=== PATIENT | male | born 1970 | race Caucasian/White ===

== ENCOUNTER 2016-10-04 15:43 | Inpatient (IN) | payer MEDICAID, OTHER ==
[~2016-10-04] VITALS: Ht 165.1 cm; Wt 70.8 kg
[~2016-10-04 15:43] MED LIST: ALBU17IN2 INH; BUPR1SUB5 SL; CLEO300C2 PO; CYMB1CAP5 PO; CYMB60CA3 PO; DEPA250T2 PO; DULO30CA PO; GABA-283 PO; INVE234I IM; INVE3TAB PO; LEVA750T PO; LEVO25TA5 PO; LEVO750T33 PO; NICO21PAT TD; OLAN2.5T PO; OMEP20CA3 PO; OMEP40CA2 PO; PANT40TA2 PO; PRIL20CA PO; QUET1TAB8 PO; QUET1TAB9 PO; RISP2TAB12 OR; SERO1TAB PO; SERO200T PO; SUBO8MIS SL; TRAZ50TA OR; TYLE325T5 PO; ZYPR2.5T2 PO
[2016-10-04 16:34] LABS: MEAN CORPUSCULAR HEMOGLOBIN 29.6 pg (27.0-33.0); MEAN CORPUSCULAR HGB CONC 33.9 g/dl (32.0-36.5); MEAN CORPUSCULAR VOLUME 87.2 fl (80.0-96.0); RED CELL DISTRIBUTION WIDTH 13.4 % (11.5-14.5)
[2016-10-04 16:59] LABS: BLOOD UREA NITROGEN 13 MG/DL (7-18); CREATININE FOR GFR 0.99 MG/DL (0.70-1.30); GLUCOSE, FASTING 92 MG/DL (70-105)
[2016-10-04 17:00] LABS: ALBUMIN 3.6 GM/DL (3.2-5.2); ALBUMIN/GLOBULIN RATIO 1.13 (1.00-1.93); ALKALINE PHOSPHATASE 121 U/L (45-117); ALT/SGPT 30 U/L (12-78); ANION GAP 6 MEQ/L (8-16); AST/SGOT 14 U/L (15-37); BILIRUBIN,DIRECT 0.1 MG/DL (0.0-0.2); BILIRUBIN,TOTAL 0.3 MG/DL (0.2-1.0); CALCIUM LEVEL 8.9 MG/DL (8.5-10.1); CARBON DIOXIDE LEVEL 29 MEQ/L (21-32); CHLORIDE LEVEL 108 MEQ/L (98-107); GLOMERULAR FILTRATION RATE > 60.0 (>60); POTASSIUM SERUM 4.2 MEQ/L (3.5-5.1); SODIUM LEVEL 143 MEQ/L (136-145); TOTAL PROTEIN 6.8 GM/DL (6.4-8.2)
[2016-10-04 19:51] LABS: AMPHETAMINES LEVEL URINE POSITIVE (NEGATIVE); BENZODIAZEPINES URINE NEGATIVE (NEGATIVE); COCAINE METABOLITE URINE POSITIVE (NEGATIVE); METHADONE URINE NEGATIVE (NEGATIVE); OPIATES URINE POSITIVE (NEGATIVE); TRICYCLIC ANTIDEPRESS URINE NEGATIVE (NEGATIVE)
[2016-10-04 19:52] LABS: CONTROL LINE INT CTR LINE PRESENT
[2016-10-04] MEDS ORDERED: BUPRENORPHINE/NALOXONE 8-2MG SUBLINGUAL TABLET(SUBOXONE) PO ONE (20:45)
--- NOTE | 2016-10-05 08:56 | EDDOCDS ---
Physician Documentation [facility] Name: Vitaliy Alex Age: 46 yrs Sex: Male : 1970 Arrival Date: 10/04/2016 Time: 15:43 Bed OBSERVATION Private MD: NO PRIMARY PHYSICIAN, . Disposition: 10/05/16 07:50 Hospitalization ordered by Vero Ruth for Inpatient Admission. Preliminary diagnosis is Schizoaffective disorders. - Bed requested for Admit. - Status is Inpatient Admission. mk4 - Condition is Stable. - Problem is an acute exacerbation. - Symptoms are unchanged. Historical: - Allergies: no known allergies; - Home Meds: 1. Suboxone SL 1 tab twice daily 2. invega IM monthly - PMHx: opiod addiction; - PSHx: Appendectomy; Tonsillectomy; right leg surgery; right hand surgery; right knee surgery; - Social history: Smoking status: Patient uses tobacco products, heavy tobacco smoker. No barriers to communication noted, The patient speaks fluent [place]. - Family history: Not pertinent. - : The pt / caregiver states he / she is not on anticoagulants. Home medication list is obtained from the patient. - Exposure Risk Screening:: None identified. Vital Signs: 10/04 16:00 BP 145 / 92; Pulse 95; Resp 16; Temp 98.5(T); Pulse Ox 94% on R/A; Weight 65.77 kg / mcp 145 lbs; Height 5 ft. 7 in. (170.18 cm); Pain 0/10; 20:50 BP 140 / 96; Pulse 91; Resp 18; Temp 98.8(T); Pulse Ox 96% on R/A; Pain 0/10; rw1 10/05 06:00 BP 164 / 95 LA Supine; Pulse 71; Resp 16; Temp 97.2(T); Pulse Ox 96% on R/A; Pain 0/10; rw1 08:50 BP 150 / 84; Pulse 72; Resp 18; Temp 99(TE); Pulse Ox 96% on R/A; Pain 0/10; mk4 10/04 16:00 Body Mass Index 22.71 (65.77 kg, 170.18 cm) mcp 06:00 MD aware rw1 MDM: 10/04 15:49 Consult PFS/PSA/Plasterer Foreman ordered. sd1 15:49 Consult PFS/PSA/Plasterer Foreman: Patient's case requires discussion with on-call sd1 Psychiatrist ordered. 15:49 PSA/PFS to call Nursing Pipe Manufacture Supervisor, to enter patient data on [place] Safe Act if patient sd1 involuntarily admitted or transferred for SI or HI ordered. 15:49 Confirm accurate psychiatric medication list and times of last dosage ordered. sd1 15:49 Detain Pt Until Medically/PFS Cleared ordered. sd1 15:50 Acetaminophen Level Ordered. EDMS 15:50 Basic Metabolic Profile Ordered. EDMS 15:50 Complete Blood Count Ordered. EDMS 15:50 Drug Eval Toxicology ED Only Ordered. EDMS 15:50 Ethyl Alcohol (ethanol) Ordered. EDMS 15:50 Liver Profile Ordered. EDMS 15:50 Salicylate Level Ordered. EDMS 15:50 Thyroid Stimulating Hormone Ordered. EDMS 16:04 REGULAR DIET PLASTIC ANTHONY+DIET ordered. EDMS 19:11 Acetaminophen Level Reviewed. ml 19:11 Basic Metabolic Profile Reviewed. ml 19:11 Complete Blood Count Reviewed. ml 19:11 Liver Profile Reviewed. ml 19:11 Salicylate Level Reviewed. ml 19:11 Ethyl Alcohol (ethanol) Reviewed. ml 19:11 Thyroid Stimulating Hormone Reviewed. ml 19:14 Misc. Nursing Order ordered. ml 19:18 Suboxone 8 mg-2 mg 1 tabs Sublingual now ordered. ml 20:45 Consult PFS/PSA/Plasterer Foreman complete. hm1 20:45 Consult PFS/PSA/Plasterer Foreman: Patient's case requires discussion with [facility] complete. 20:45 PSA/PFS to call Nursing Pipe Manufacture Supervisor, to enter patient data on [place] Safe [place] if patient hm1 involuntarily admitted or transferred for SI or HI complete. 20:53 Drug Eval Toxicology ED Only Reviewed. ml 10/05 04:17 REGULAR DIET PLASTIC ANTHONY+DIET ordered. EDMS 05:45 Awaiting: The patient is awaiting psychiatric admission or transfer. All labs and pc investigations have been reviewed. The vital signs have been reviewed. The patient remains medically cleared for disposition. 07:22 Admit to [facility]: ordered. EDMS 07:28 [facility] Legal paperwork was scanned into [facility] and attached to record. rb 08:44 Financial registration complete. mm15 08:45 [facility] [place] was [place] into [facility] and attached to record. mm15 Administered Medications: 10/04 20:44 Drug: Suboxone 8 mg-2 mg 1 tabs Route: Sublingual; rw1 10/05 04:16 Follow up: Response: No Adverse Reaction rw1 Signatures: Dispatcher [employer] Pepe Schaefer MD MD pc Delaney-Rowland, Sarah, MD MD sd1 Olivia Robins MD MD ml Peters, Mary, RN RN mcp Christina Rodríguez, PSA PSA rb Sunshine Krause, PSA PSA hm1 Niharika Garber mm15 Gena Arcos RN RN [email or web address] Ward Ash LPN rw1 The chart was reviewed and I authenticate all verbal orders and agree with the evaluation and treatment provided.Attachments: 08:45 [facility] Payment Agreement mm15 MTDD
--- NOTE | 2016-10-05 08:56 | EDDOCDS ---
Nurse's Notes [facility] Name: Vitaliy Alex Age: 46 yrs Sex: Male : 1970 Arrival Date: 10/04/2016 Time: 15:43 Bed OBSERVATION Private MD: NO PRIMARY PHYSICIAN, . Diagnosis: Schizoaffective disorders Presentation: 10/04 15:57 Presenting complaint: Patient states: Made statement that he was going to hurt self and mcp was picked up by police. Mental Health Triage Level: Level 2: The patient displays active suicidal ideations. The patient was brought to the ED for evaluation because of a legal pickup order. Adult Sepsis Screening: The patient does not have new or worsening altered mentation. Patient's respiratory rate is less than 22. Systolic blood pressure is greater than 100. Patient has a qSOFA score of 0- Negative Sepsis Screen. Suicide/Homicide risk assessment- The patient admits to and/or has been reported to be having suicidal ideations. The patient reports that he/she has a recent or current history of substance abuse. The patient reports that he/she has a prior history of suicide attempt and/or organized plan. The patient reports that he/she lacks adequate social support. The patient reports he/she has significant chronic medical condition(s). Status: Patient is not a plumbing service technician or dependent. Transition of care: patient was not received from another setting of care. 15:57 Acuity: KATI Level 3 [facility] 15:57 Method Of Arrival: Police Car [facility] Triage Assessment: 16:01 General: Appears in no apparent distress, Behavior is cooperative. Pain: Denies pain. [facility] HIV screening NA for this visit Offered previously. Historical: - Allergies: no known allergies; - Home Meds: 1. Suboxone SL 1 tab twice daily 2. invega IM monthly - PMHx: opiod addiction; - PSHx: Appendectomy; Tonsillectomy; right leg surgery; right hand surgery; right knee surgery; - Social history: Smoking status: Patient uses tobacco products, heavy tobacco smoker. No barriers to communication noted, The patient speaks fluent Telugu. - Family history: Not pertinent. - : The pt / caregiver states he / she is not on anticoagulants. Home medication list is obtained from the patient. - Exposure Risk Screening:: None identified. Screenin:01 Screening information is obtained from the patient. Fall risk: No risks identified. mcp Assistance ADL's: requires no assistance with activities of daily living. Abuse/DV Screen: The patient / caregiver reports he/she is: not in a situation that causes fear, pain or injury. Nutritional screening: No deficits noted. Advance Directives: There is no active DNR order. home support is adequate. Assessment: 16:02 General: Appears in no apparent distress, comfortable, Behavior is cooperative. Pain: mcp Denies pain. Neurological: Level of Consciousness is awake, alert, Oriented to person, place, time, Moves all extremities. Gait is steady, Speech is normal. Respiratory: Airway is patent Respiratory effort is even, unlabored. Derm: Skin is pink, warm & dry. 17:01 General: Appears in no apparent distress, comfortable, Behavior is cooperative. Pain: mcp Denies pain. Neurological: No deficits noted. Respiratory: Airway is patent Respiratory effort is even, unlabored. Derm: Skin is pink, warm & dry. 18:00 General: Appears in no apparent distress, comfortable, Behavior is cooperative. Pain: mcp Denies pain. Neurological: Level of Consciousness is awake, alert, Oriented to person, place, time, Moves all extremities. Speech is normal. Respiratory: Airway is patent. Derm: Skin is pink, warm & dry. 19:00 General: Appears in no apparent distress, comfortable, Behavior is cooperative. Pain: mcp Denies pain. Neurological: Level of Consciousness is awake, alert, Oriented to person, place, time, Moves all extremities. Speech is normal. Respiratory: Airway is patent Respiratory effort is even, unlabored. Derm: Skin is pink, warm & dry. 20:08 General: Appears in no apparent distress, comfortable, Behavior is cooperative. af2 Neurological: Level of Consciousness is awake, alert. Respiratory: Airway is patent Respiratory effort is even, unlabored. Derm: Skin is pink, warm & dry. 20:51 General: Appears in no apparent distress, comfortable, Behavior is appropriate for age, rw1 cooperative. Pain: Denies pain. Neurological: Level of Consciousness is awake, alert, obeys commands, Oriented to person, place, time. Respiratory: Airway is patent Respiratory effort is even, unlabored. Derm: Skin is pink, warm & dry. normal. 22:00 Reassessment: Patient appears in no apparent distress at this time. resting quietly on rw1 stretcher, safety maintained will monitor.. 23:22 Reassessment: Patient appears in no apparent distress at this time. resting quietly on rw1 stretcher, safety maintained will monitor.. 10/05 00:38 Reassessment: Patient appears in no apparent distress at this time. lying on stretcher, af2 resting quietly with eyes closed, security observing, will continue to monitor. . Neurological: Level of Consciousness is awake, alert. Respiratory: Airway is patent Respiratory effort is even, unlabored. Derm: Skin is normal. 01:59 General: Appears in no apparent distress, comfortable, Behavior is quiet, resting on rw1 stretcher with eyes closed, safety maintained. Respiratory: Airway is patent Respiratory effort is even, unlabored. Derm: Skin is pink, warm & dry. normal. 03:09 Reassessment: Patient appears in no apparent distress at this time. resting quietly on rw1 stretcher, safety maintained will monitor.. 04:12 Reassessment: Patient appears in no apparent distress at this time. Patient denies pain cf2 at this time. Patient states feeling better. General: Patient calm and cooperative. Will continue to monitor. 05:01 General: Appears in no apparent distress, comfortable, Behavior is quiet, resting on rw1 stretcher with eyes closed, safety maintained. Respiratory: Airway is patent Respiratory effort is even, unlabored. Derm: Skin is pink, warm & dry. normal. 06:00 Reassessment: Patient appears in no apparent distress at this time. Patient denies pain rw1 at this time. resting quietly on stretcher, safety maintained will monitor.. 06:26 Reassessment: Patient appears in no apparent distress at this time. Patient denies pain cf2 at this time. Patient states feeling better. General: Patient calm and cooperative. Will continue to monitor. 07:30 Reassessment: Patient appears in no apparent distress at this time. Respiratory: kr3 Respiratory effort is even, unlabored. 08:50 General: Appears in no apparent distress, comfortable, to be sleeping. arouses readily mk4 for assessment denies any needs. Mental Health Eval: 10/04 20:45 Mental health consult is initiated at 20:30. Status: The patient is not a 1 plumbing service technician or dependent. [facility] Behavioral Health: The patient is not an established patient of [facility] Behavioral Health. Referral Information: Evaluation referral is generated by the patient himself / herself. The patient was referred for evaluation because Pt contacted the [facility] crisis line reporting that he was hearing voices telling him to kill himself. Pt was brought into [facility] by police on . Subjective: The patients chief complaint is Pt was somewhat guarded and irritable, refused to give much information, reported that his voices are back and he worries that he's going to hurt himself because the voices are commanding him to do so. Pt reports numerous plans, stating that the voices tell him many different ways that he could hurt himself. . Delusions are paranoid, Patient's mood is dysphoric, irritable, Auditory Hallucinations are reported by the patient. Command hallucinations are reported by the patient. Pt reports sometimes feeling that others are talking about him, feels that people and the voices want him to hurt himself and they are helping him to work out plans to do so. Pt reports that he has been taking Invega and his Suboxone as prescribed through [facility]. Pt was unable to give any specific triggers or new stressors, states that he lives with his sister and they get along well. Mental Health history: abusing narcotics. paranoia, schizophrenia, sleep disturbance, Mental Health Admissions: pt has 5 previous psychiatric admissions, most recently 06/16/16, pt reports 5 previous suicide attempts Current Outpatient Mental Health Services: Psychiatrist / Agency: [facility]. Current living environment is Family / Home Support: pt lives with his sister. Patient presents to Emergency Department with the following symptoms within the past 2 weeks: depressed mood, drug abuse, auditory hallucinations stated by patient labile mood, sleep disturbance - insomnia, suicidal ideation with no plan. Substance abuse: when asked about alcohol or drug use pt states "yes", when asked if he wanted to give details pt refuses. Mental status exam: Patients appearance is appropriate, Patient's behavior is minimally responsive Speech is slow. Affect is flat. Mood is depressed. Auditory Hallucinations are reported by the patient. Appetite is normal. Memory is fair. Energy level is normal. Content of thought is paranoid. . Thought process is intact. Cognitive level is oriented to person, place, time and situation Patient's insight is fair. Judgement is poor. Rapport with interviewer is guarded. Suicidal Ideation is present with no specific plan. Homicidal ideation is denied. 23:16 Disposition: Medically cleared for disposition by Olivia Robins MD Psychiatric hm1 Consult is performed by phone with Dr Vero Ruth. [facility] Admission Criteria: The patient is experiencing suicidal ideation. The patient displays symptoms of severe psychiatric disorder resulting in disordered behavior and significant interference with his / her ability to maintain self care. Hallucinations. The patient requires continuous observation and/or control to protect self, others or property. The patient's care requires a multi-modal treatment plan under close supervision and coordination due to the complexity and severity of the patient's symptoms. The patient requires administration and monitoring of psychoactive medications by skilled medical providers due to the side effects of the psychoactive medications or significant dosage adjustments. Legal Status: Patient's legal status will be [facility] Services admission: . [place] because patient was registered less than 6 months ago. DSM-V Differential Diagnosis: Schizophrenia (F20.9). Narrative: at this time [facility] is at capacity, pt will be transferred to the nearest facility with available beds. Awaiting: referral hospital acceptance. 10/05 07:01 Legal Status: Patient's legal status will be Emergency admission: 939. rb Vital Signs: 10/04 16:00 BP 145 / 92; Pulse 95; Resp 16; Temp 98.5(T); Pulse Ox 94% on R/A; Weight 65.77 kg; [facility] Height 5 ft. 7 in. (170.18 cm); Pain 0/10; 20:50 BP 140 / 96; Pulse 91; Resp 18; Temp 98.8(T); Pulse Ox 96% on R/A; Pain 0/10; rw1 10/05 06:00 BP 164 / 95 LA Supine; Pulse 71; Resp 16; Temp 97.2(T); Pulse Ox 96% on R/A; Pain 0/10; rw1 08:50 BP 150 / 84; Pulse 72; Resp 18; Temp 99(TE); Pulse Ox 96% on R/A; Pain 0/10; mk4 10/04 16:00 Body Mass Index 22.71 (65.77 kg, 170.18 cm) [facility] 06:00 MD aware rw1 Vitals: 10/04 16:00 Log In time N/A- police car arrival. [facility] ED Course: 15:46 Patient visited by Kelly Collins. cmb 15:46 NO PRIMARY PHYSICIAN, . is Private Physician. cmb 15:46 Patient moved to Waiting cmb 15:[address] [facility] cmb 15:58 Triage Initiated mcp 15:59 Patient visited by Amee Traore RN. mcp 16:01 Olivia Robins MD is Attending Physician. ml 16:01 Patient visited by Olivia Robins MD. ml 16:02 The patient / caregiver is instructed regarding the plan of care and ED course. Patient mcp has correct armband on for positive identification. Placed in psych safe attire. Bed in low position. Call light in reach. 16:03 Patient visited by Amee Traore RN. mcp 16:37 Patient visited by Yoan Foss. dpm 16:52 Patient visited by Yoan Foss. dpm 17:02 Patient visited by Amee Traore RN. mcp 17:29 Patient visited by Yoan Foss. dpm 17:41 Patient visited by Yoan Foss. dpm 18:08 Patient visited by Yoan Foss. dpm 18:45 Patient visited by Yoan Foss. dpm 19:01 Patient visited by Amee Traore RN. mcp 19:02 Patient visited by Yoan Foss. dpm 19:15 Psych Safety Check: Location: Psych Room. Visual Assessment: Cooperative. kb5 19:30 Psych Safety Check: Location: Psych Room. Visual Assessment: Cooperative. kb5 19:32 Patient visited by Chintan Bassett PCA. kb5 19:32 Drug Eval Toxicology ED Only Sent. rw1 19:45 Patient visited by Chintan Bassett PCA. kb5 19:45 Psych Safety Check: Location: Psych Room. Visual Assessment: Cooperative. kb5 19:50 Ward Ash LPN is Primary Nurse. rw1 20:00 Patient visited by Chintan Bassett PCA. kb5 20:00 Psych Safety Check: Location: Psych Room. Visual Assessment: Cooperative. kb5 20:09 Patient visited by Elin Dent RN. af2 20:15 Psych Safety Check: Location: Psych Room. Visual Assessment: Cooperative. kb5 20:18 Patient visited by [place], Chintan, ABORIGINAL LIAISON OFFICER. kb5 20:30 Psych Safety Check: Location: Psych Room. Visual Assessment: Cooperative. kb5 20:31 Patient visited by Germain Bassettistopher, ABORIGINAL LIAISON OFFICER. kb5 20:45 Psych Safety Check: Location: Psych Room. Visual Assessment: Cooperative. kb5 20:51 Patient visited by Danyelle, Chintan, ABORIGINAL LIAISON OFFICER. kb5 21:00 Patient visited by Germain Bassettistopher ABORIGINAL LIAISON OFFICER. kb5 21:00 Psych Safety Check: Location: Psych Room. Visual Assessment: Cooperative. kb5 21:15 Patient visited by Danyelle Chintan, ABORIGINAL LIAISON OFFICER. kb5 21:15 Psych Safety Check: Location: Psych Room. Visual Assessment: Cooperative. kb5 21:30 Patient visited by Germain Bassettistopher ABORIGINAL LIAISON OFFICER. kb5 21:30 Psych Safety Check: Location: Psych Room. Visual Assessment: Cooperative. kb5 21:45 Patient visited by Pako Bassettopher ABORIGINAL LIAISON OFFICER. kb5 21:45 Psych Safety Check: Location: Psych Room. Visual Assessment: Cooperative. kb5 22:00 Patient visited by Germain Bassettistopher ABORIGINAL LIAISON OFFICER. kb5 22:00 Psych Safety Check: Location: Psych Room. Visual Assessment: Cooperative. kb5 22:15 Patient visited by Germain Bassettistopher ABORIGINAL LIAISON OFFICER. kb5 22:15 Psych Safety Check: Location: Psych Room. Visual Assessment: Cooperative. kb5 22:30 Patient visited by Germain Bassettistopher ABORIGINAL LIAISON OFFICER. kb5 22:30 Psych Safety Check: Location: Psych Room. Visual Assessment: Cooperative. kb5 22:45 Patient visited by Pako Bassettopher ABORIGINAL LIAISON OFFICER. kb5 22:45 Patient moved to OBSERVATION oct 22:45 Psych Safety Check: Location: Psych Room. Visual Assessment: Cooperative. kb5 23:00 Patient visited by Ward Ash LPN. rw1 23:00 Psych Safety Check: Location: Psych Room. Visual Assessment: Cooperative. kb5 23:15 Psych Safety Check: Location: Psych Room. Visual Assessment: Cooperative. kb5 23:20 Patient visited by Pako Bassettopher ABORIGINAL LIAISON OFFICER. kb5 23:30 Psych Safety Check: Location: Psych Room. Visual Assessment: Cooperative. kb5 23:45 Psych Safety Check: Location: Psych Room. Visual Assessment: Cooperative. kb5 23:53 Patient visited by Chintan Bassett ABORIGINAL LIAISON OFFICER. kb5 01 00:00 Patient visited by Chintan Bassett ABORIGINAL LIAISON OFFICER. kb5 00:00 Psych Safety Check: Location: Psych Room. Visual Assessment: Cooperative. kb5 00:15 Psych Safety Check: Location: Psych Room. Visual Assessment: Cooperative. kb5 00:17 Patient visited by Ward Ash LPN. rw1 00:30 Psych Safety Check: Location: Psych Room. Visual Assessment: Cooperative. kb5 00:32 Patient visited by Chintan Bassett ABORIGINAL LIAISON OFFICER. kb5 00:45 Patient visited by Chintan Bassett PCA. kb5 00:45 Psych Safety Check: Location: Psych Room. Visual Assessment: Cooperative. kb5 00:48 role handed off by Brad Way PSA kb5 00:49 role handed off by Brendan Ramos PSA kb5 01:00 Primary Nurse role handed off by Ward Ash LPN cf2 01:00 Mckenzie Steele,RN is Primary Nurse. cf2 01:00 Patient visited by Mceknzie Steele,LEONIDAS. cf2 01:00 Psych Safety Check: Location: Psych Room. Visual Assessment: Cooperative. kb5 01:03 Patient visited by Chintan Bassett ABORIGINAL LIAISON OFFICER. kb5 01:15 Psych Safety Check: Location: Psych Room. Visual Assessment: Cooperative. kb5 01:17 Patient visited by Chintan Bassett ABORIGINAL LIAISON OFFICER. kb5 01:30 Psych Safety Check: Location: Psych Room. Visual Assessment: Cooperative. kb5 01:31 Patient visited by Chintan Bassett ABORIGINAL LIAISON OFFICER. kb5 01:45 Psych Safety Check: Location: Psych Room. Visual Assessment: Cooperative. kb5 01:52 Patient visited by Chintan Bassett PCA. kb5 02:00 Psych Safety Check: Location: Psych Room. Visual Assessment: Cooperative. kb5 02:15 Psych Safety Check: Location: Psych Room. Visual Assessment: Cooperative. kb5 02:24 Patient visited by Chintan Bassett PCA. kb5 02:30 Patient visited by Mckenzie Steele RN. cf2 02:30 Psych Safety Check: Location: Psych Room. Visual Assessment: Cooperative. kb5 02:44 Patient visited by Hector Montilla. jp4 02:45 Psych Safety Check: Location: Psych Room. Visual Assessment: Cooperative. kb5 03:00 Patient visited by Chintan Bassett PCA. kb5 03:00 Psych Safety Check: Location: Psych Room. Visual Assessment: Cooperative. kb5 03:15 Patient visited by Chintan Bassett PCA. kb5 03:15 Psych Safety Check: Location: Psych Room. Visual Assessment: Cooperative. kb5 03:30 Psych Safety Check: Location: Psych Room. Visual Assessment: Cooperative. kb5 03:31 Patient visited by Ward Ash LPN. rw1 03:45 Patient visited by Ward Ash LPN. rw1 03:45 Psych Safety Check: Location: Psych Room. Visual Assessment: Cooperative. kb5 04:00 Psych Safety Check: Location: Psych Room. Visual Assessment: Cooperative. kb5 04:04 Patient visited by Ward Ash LPN. rw1 04:15 Psych Safety Check: Location: Psych Room. Visual Assessment: Cooperative. kb5 04:17 Patient visited by Chintan Bassett PCA. kb5 04:30 Patient visited by Chintan Bassett PCA. kb5 04:30 Psych Safety Check: Location: Psych Room. Visual Assessment: Cooperative. kb5 04:45 Patient visited by Chintan Bassett PCA. kb5 04:45 Psych Safety Check: Location: Psych Room. Visual Assessment: Cooperative. kb5 05:00 Psych Safety Check: Location: Psych Room. Visual Assessment: Cooperative. kb5 05:15 Psych Safety Check: Location: Psych Room. Visual Assessment: Cooperative. kb5 05:21 Patient visited by Chintan Bassett PCA. kb5 05:30 Psych Safety Check: Location: Psych Room. Visual Assessment: Cooperative. kb5 05:40 Patient visited by Chintan Bassett PCA. kb5 05:45 Attending Physician role handed off by Olivia Robins MD pc 05:45 Pepe Avalos MD is Attending Physician. pc 05:45 Patient visited by Chintan Bassett PCA. kb5 05:45 Psych Safety Check: Location: Psych Room. Visual Assessment: Cooperative. kb5 06:00 Patient visited by Chintan Bassett PCA. kb5 06:00 Psych Safety Check: Location: Psych Room. Visual Assessment: Cooperative. kb5 06:15 Patient visited by Chintan Bassett ABORIGINAL LIAISON OFFICER. kb5 06:15 Patient visited by Chintan Bassett PCA. kb5 06:15 Psych Safety Check: Location: Psych Room. Visual Assessment: Cooperative. kb5 06:26 Patient visited by Mckenzie Steele RN. cf2 06:30 Patient visited by Chintan Bassett PCA. kb5 06:30 Psych Safety Check: Location: Psych Room. Visual Assessment: Cooperative. kb5 06:45 Psych Safety Check: Location: Psych Room. Visual Assessment: Cooperative. kb5 06:55 Patient visited by Chintan Bassett PCA. kb5 07:00 Suzy Aguiar RN is Primary Nurse. ck1 07:00 Psych Safety Check: Location: Psych Room. Visual Assessment: Cooperative. kb5 07:05 Attending Physician role handed off by Pepe Avalos MD sd1 07:05 Emma Sanchez MD is Attending Physician. sd1 07:05 Patient visited by Chintan Bassett PCA. kb5 07:28 [facility] Legal paperwork was scanned into [employer] and attached to record. rb 07:50 Vero Ruth is Hospitalizing Provider. sd1 07:53 Patient visited by Amadeo [employer] Aidsumeet. pjf 08:08 Patient visited by Amadeo Craft Security Aide. pjf 08:41 Patient visited by Gena Arcos RN. mk4 08:45 [facility] Payment Agreement was scanned into [employer] and attached to record. mm15 08:50 No IV's were initiated during this patient's visit. No procedures done that require mk4 assistance. Administered Medications: 10/04 20:44 Drug: Suboxone 8 mg-2 mg 1 tabs Route: Sublingual; rw1 10/05 04:16 Follow up: Response: No Adverse Reaction rw1 Attachments: 07:28 [facility] Legal paperwork rb Order Results: Lab Order: Acetaminophen Level; SPEC'M 10/04/16 16:16 Test: ACETAMINOPHEN LEVEL; Value: < 2.0; Range: 10.0-30.0; Abnormal: Below low normal; Units: UG/ML; Status: F Lab Order: Basic Metabolic Profile; SPEC'M 10/04/16 16:16 Test: GLUCOSE, FASTING; Value: 92; Range: 70-105; Units: MG/DL; Status: F Test: BLOOD UREA NITROGEN; Value: 13; Range: 7-18; Units: MG/DL; Status: F Test: CREATININE FOR GFR; Value: 0.99; Range: 0.70-1.30; Units: MG/DL; Status: F Test: GLOMERULAR FILTRATION RATE; Value: > 60.0; Range: >60; Status: F Test: SODIUM LEVEL; Value: 143; Range: 136-145; Units: MEQ/L; Status: F Test: POTASSIUM SERUM; Value: 4.2; Range: 3.5-5.1; Units: MEQ/L; Status: F Test: CHLORIDE LEVEL; Value: 108; Range: 98-107; Abnormal: Above high normal; Units: MEQ/L; Status: F Test: CARBON DIOXIDE LEVEL; Value: 29; Range: 21-32; Units: MEQ/L; Status: F Test: ANION GAP; Value: 6; Range: 8-16; Abnormal: Below low normal; Units: MEQ/L; Status: F Test: CALCIUM LEVEL; Value: 8.9; Range: 8.5-10.1; Units: MG/DL; Status: F Test Note: ; Units are mL/min/1.73 m2 Chronic Kidney Disease Staging per NKF: Stage I & II GFR >=60 Normal to Mildly Decreased Stage III GFR 30-59 Moderately Decreased Stage IV GFR 15-29 Severely Decreased Stage V GFR <15 Very Little GFR Left ESRD GFR <15 on MACHINE CLOTHING REPLACER Lab Order: Complete Blood Count; SPEC'M 10/04/16 16:16 Test: WHITE BLOOD COUNT; Value: 5.0; Range: 4.0-10.0; Units: K/mm3; Status: F Test: RED BLOOD COUNT; Value: 4.55; Range: 4.30-6.10; Units: M/mm3; Status: F Test: HEMOGLOBIN; Value: 13.5; Range: 14.0-18.0; Abnormal: Below low normal; Units: g/dl; Status: F Test: HEMATOCRIT; Value: 39.7; Range: 42.0-52.0; Abnormal: Below low normal; Units: %; Status: F Test: MEAN CORPUSCULAR VOLUME; Value: 87.2; Range: 80.0-96.0; Units: fl; Status: F Test: MEAN CORPUSCULAR HEMOGLOBIN; Value: 29.6; Range: 27.0-33.0; Units: pg; Status: F Test: MEAN CORPUSCULAR HGB CONC; Value: 33.9; Range: 32.0-36.5; Units: g/dl; Status: F Test: RED CELL DISTRIBUTION WIDTH; Value: 13.4; Range: 11.5-14.5; Units: %; Status: F Test: PLATELET COUNT, AUTOMATED; Value: 237; Range: 150-450; Units: k/mm3; Status: F Lab Order: Drug Eval Toxicology ED Only; SPEC'M 10/04/16 19:26 Test: AMPHETAMINES LEVEL URINE; Value: POSITIVE; Range: NEGATIVE; Abnormal: Above high normal; Status: F Test: BARBITURATES URINE; Value: NEGATIVE; Range: NEGATIVE; Status: F Test: BENZODIAZEPINES URINE; Value: NEGATIVE; Range: NEGATIVE; Status: F Test: CANNABINOIDS URINE; Value: NEGATIVE; Range: NEGATIVE; Status: F Test: COCAINE METABOLITE URINE; Value: POSITIVE; Range: NEGATIVE; Abnormal: Above high normal; Status: F Test: METHADONE URINE; Value: NEGATIVE; Range: NEGATIVE; Status: F Test: OPIATES URINE; Value: POSITIVE; Range: NEGATIVE; Abnormal: Above high normal; Status: F Test: TRICYCLIC ANTIDEPRESS URINE; Value: NEGATIVE; Range: NEGATIVE; Status: F Test Note: ; ALL PRESUMPTIVE POSITIVE FINDINGS ARE UNCONFIRMED NORMAL VALUES THRESHOLD IN NG/ML AMPHETAMINES 1000 METHAMPHETAMINES 1000 BARBITURATES 300 BENZODIAZEPINES 300 CANNABINOIDS (THC) 50 COCAINE METABOLITE 300 METHADONE 300 OPIATES 300 PHENCYCLIDINE 25 TRICYCLIC ANTIDEPRESSANTS 1000 RESULTS ARE FOR MEDICAL PURPOSES ONLY. ALL URINE SPECIMENS WILL BE SAVED FOR 3 DAYS. IF CONFIRMATION OF A PRESUMPTIVE POSTIVE SCREEN RESULT IS DESIRED, CALL CHEMISTRY ([phone]) AND REQUEST URINE TO BE SENT TO REFERENCE LAB. FOR A LIST OF CLOSELY RELATED COMPOUNDS PLEASE CALL THE LAB. Lab Order: Ethyl Alcohol (ethanol); SPEC'M 10/04/16 16:16 Test: ETHYL ALCOHOL (ETHANOL); Value: < 0.003; Range: 0.000-0.010; Units: %; Status: F Lab Order: Liver Profile; SPEC'M 10/04/16 16:16 Test: AST/SGOT; Value: 14; Range: 15-37; Abnormal: Below low normal; Units: U/L; Status: F Test: ALT/SGPT; Value: 30; Range: 12-78; Units: U/L; Status: F Test: ALKALINE PHOSPHATASE; Value: 121; Range: 45-117; Abnormal: Above high normal; Units: U/L; Status: F Test: BILIRUBIN,TOTAL; Value: 0.3; Range: 0.2-1.0; Units: MG/DL; Status: F Test: BILIRUBIN,DIRECT; Value: 0.1; Range: 0.0-0.2; Units: MG/DL; Status: F Test: TOTAL PROTEIN; Value: 6.8; Range: 6.4-8.2; Units: GM/DL; Status: F Test: ALBUMIN; Value: 3.6; Range: 3.2-5.2; Units: GM/DL; Status: F Test: ALBUMIN/GLOBULIN RATIO; Value: 1.13; Range: 1.00-1.93; Status: F Lab Order: Salicylate Level; SPEC'M 10/04/16 16:16 Test: SALICYLATE LEVEL; Value: 3.4; Range: 5.0-30.0; Abnormal: Below low normal; Units: MG/DL; Status: F Lab Order: Thyroid Stimulating Hormone; SPEC'M 10/04/16 16:16 Test: THYROID STIMULATING HORMONE; Value: 0.807; Range: 0.358-3.740; Units: uIU/ML; Status: F Outcome: 07:50 Decision to Hospitalize by Provider. sd1 08:50 Discharge Assessment: Patient awake, alert and oriented x 3. No cognitive and/or mk4 functional deficits noted. Patient verbalized understanding of disposition instructions. Patient awake and alert. patient administered narcotics - no. The following High Risk Discharge criteria are identified: None. Admitted to Psych accompanied by tech, via wheelchair, with chart. Condition: stable. No special radiology studies were completed. Property left with pt per RNadonis. 08:54 Patient left the ED. mk4 Signatures: Pepe Avalos MD MD pc Delaney-Rowland, Sarah, MD MD sd1 Olivia Robins MD MD ml Twin, Monika Ashraf, RN Amee Barton, RN Christina Saleh mcp, PSA PSA rb Venancio, Amadeo, Security Aide Secsarthakpf Cosme,Suzy,RN RN ck1 Irish Virgen,RN RN kr3 Ward Ash,ELEVATOR CONSTRUCTOR HYDRAULIC ELEVATOR CONSTRUCTOR HYDRAULIC rw1 Chintan Bassett, ABORIGINAL LIAISON OFFICER ABORIGINAL LIAISON OFFICER kb5 Sunshine Krause, PSA PSA hm1 Yoan Foss dpKelly Zamora cmNiharika Smith mm15 Gena Arcos RN RN mk4 Hector Montilla jp4 Elin Dent,RN RN af2 Mckenzie Steele,RN RN cf2 MTDD
[2016-10-05 09:34] VITALS: BP 165/106
[2016-10-05] MEDS ORDERED: SUBO8MIS SL (11:11)
--- NOTE | 2016-10-05 13:26 | HPEPDOC ---
Medical History and Physical Date of Admission Oct 05, 2016 at 09:00 History and Physical PCP: Dr South ATTENDING: Dr. Taj Bower HPI: 45yoM admitted to [facility] for Schizoaffective disorder, being medically examined today. The Pt states he has been out of his Suboxone. He has been injecting drugs, he is reluctant to answer what he was injecting and states "everything". He has no other concerns. He denies chest pain, SOB, abdominal pain, fevers, chills, POLANCO, change in bowel or bladder habits. PMHx: H/O Multiple drug overdose/suicide attempt Polysubstance abuse Schizoaffective disorder Tobacco use GERD Nuclear stress test at [facility]- as per patient reported to have been occluded artery based on this test. No prior cardiac catheterization. H/O Hepatitis C PSHX: Appendectomy Knee surgery SOCHX: Resides in: Living at his mother's [facility], from [place] Marital Status: Single Kids: 1 Employment: Unemployed Tobacco use: Smoker ETOH: Unobtainable Illicit Drugs: States he is injecting "everything". History of heroin, methamphetamine, cocaine, marijuana. Suboxone program as per Dr South. IV Drug Use: Pt states currently injecting "everything" Tattoos done unprofessionally: Denies FAMHX: Mother: Alive, Children: Alive, well ROS: As noted in HPI otherwise 11 point review of systems reviewed and unremarkable. PE: GEN: 45yoM, appears stated age. Well-nourished, well developed. No acute distress. Alert and oriented x 3. Agitated at time of exam. HEENT: Normocephalic, atraumatic. Pupils are equal, round, and reactive to light. Extraocular movements are intact. No nystagmus appreciated. Sclera are nonicteric. Conjunctiva without injection. Nose midline. Nasal turbinates without bogginess. EACs both patent BL. TMs both visualized and gleason with good cone of light, no bulging or erythema. No facial asymmetry. Moist mucous membranes. Dentition fair. Pharynx pink and moist, no cobblestoning. Neck supple , trachea midline. No lymphadenopathy or thyromegaly appreciated. CHEST: Regular rate and rhythm, +S1, +S2 LUNGS: Clear to auscultation bilaterally. No wheezes, rales, or rhonchi. Breathing appears symmetric and easy. Patient is speaking in full sentences. No accessory muscle use. ABD: Round, soft, non-tender, non-distended. +Bowel sounds throughout. No rebound or guarding. No costovertebral angle tenderness. EXT: Pulses 2+ bilaterally dorsalis pedis and radial. No lower extremity edema appreciated. SKIN: [place], dry, warm. Capillary refill <2sec. No rashes. injection owusu b/l arms, no signs of infection. NEURO: Alert and oriented x 3. Cranial nerves III-XII are intact. No focal deficits appreciated. EK06/27/16 ST, ST T-wave abnormality, 104 bpm. A&P: 45yoM admitted to [facility] for Schizoaffective disorder 1. Psych. Plan per Psychiatry. EKG on file. 2. Nicotine dependence. Patch available. 3. Abnormal EKG. no changes. Follow with PCP. 4. Follow up with PCP on discharge. Dr South. 5. Polysubstance abuse. Withdrawal per psychiatry. 6. Injection owusu b/l forearms. No signs of infection. Monitor. 7. Chronic Hepatitis C- Arrange ID at d/c. 8. Elevated BP. Monitor need for antihypertensives. Consider use of Clonidine if needed. Vital Signs Vital Signs Label Value Date Time Patient Temperature 96.8 degrees F 10/05/16 0934 Temperature Source Tympanic 10/05/16 0934 Pulse 73 10/05/16 0934 Respiratory Rate 16 bpm 10/05/16 0934 Blood Pressure Assessment 165/106 (125) 10/05/16 0934 Bedside Pulse Oximetry 97 % 10/05/16 0934 Item Value Date Time Oxygen Delivery Method Room Air 10/05/16 0934 Laboratory Data Labs 24H Laboratory Tests 2 10/04/16 16:16: Acetaminophen Level < 2.0L, Aspartate Amino Transf (AST/SGOT) 14L, Alanine Aminotransferase (ALT/SGPT) 30, Alkaline Phosphatase 121H, Total Bilirubin 0.3, Direct Bilirubin 0.1, Albumin 3.6, Albumin/Globulin Ratio 1.13, Anion Gap 6L, Calcium Level 8.9, Ethyl Alcohol Level < 0.003, Glomerular Filtration Rate > 60.0, Salicylates Level 3.4L, Thyroid Stimulating Hormone (TSH) 0.807, Total Protein 6.8 10/04/16 19:26: Urine Amphetamine Level POSITIVEH, Urine Benzodiazepines Screen NEGATIVE, Urine Cannabinoids NEGATIVE, Urine Cocaine Metabolite POSITIVEH, Urine Opiates Screen POSITIVEH, Urine Barbiturates, Qualitative NEGATIVE, Urine Methadone Screen NEGATIVE, Urine Tricyclic Antidepressants NEGATIVE CBC/BMP Laboratory Tests 10/04/16 16:16 Red Blood Count 4.55, Mean Corpuscular Volume 87.2, Mean Corpuscular Hemoglobin 29.6, Mean Corpuscular Hemoglobin Concent 33.9, Red Cell Distribution Width 13.4 Home Medications Scheduled Buprenorphine/Naloxone (Suboxone 8-2 mg) 1 Mis Mis 1 MIS SL BID opiate addiction Allergies Coded Allergies: Latex (Verified Allergy, Intermediate, rash, 12/31/12) No Known Drug Allergy (Verified Allergy, Unknown, 10/04/16) Felipa Og Oct 05, 2016 13:26
[2016-10-05 18:00] VITALS: BP 158/88
--- NOTE | 2016-10-05 23:09 | MHHPE ---
DATE OF ADMISSION: 10/05/2016 CURRENT MEDICATION: - Suboxone 8 mg sublingual twice a day CHIEF COMPLAINT: Suicidal threats to police. HISTORY OF PRESENT ILLNESS: This is a 46-year-old white male with history of chronic substance use and schizophrenia. Patient had been hospitalized here at [facility] June and placed on Invega, apparently with good response; however, the patient dropped out of mental health treatment. He claimed that the medications were no longer helping him so he stopped them. He stopped getting the Invega injections. He claims that his hallucinations then returned full force. The auditory hallucinations are commanding him to plan various suicide attempts. Patient has felt depressed. His appetite is poor. He has lost 6 pounds. His concentration is quite impaired. Patient states he has multiple stresses in his life but refuses to go into any detail. He does have a history of polysubstance use. Heroin is his drug of choice. His last use he claims was 1 week ago, but he is not a good historian. Patient's urine screen in the emergency room is positive for cocaine, metabolites, and amphetamine as well as opiates. Patient does have a history of chronic psychosis with multiple psychiatric admissions over the years. Please see previous discharge summaries for further details. He does have history of poor medication compliance, typically stopping his psychotropics and relapsing to various drugs. According to the previous record, he was seeing a Dr. South. He has a history of addiction to methamphetamine, Melissa, cannabis, and Xanax as well as the heroin. Patient is not in a chemical dependency program. PAST PSYCHIATRIC HISTORY: Please see old records. MEDICAL HISTORY: Gastroesophageal reflux disease (GERD). Hypertension. SOCIAL HISTORY: Patient lives with his sister. He has family in [place]. LEGAL HISTORY: Patient has history of long longterm terms. He is not currently on probation or parole. CHEMICAL DEPENDENCY: Long history of substance use for multiple substances. Heroin now is his current drug of choice. MENTAL STATUS EXAM: Patient is initially sleeping but is easily aroused. He is a poor historian; however, he is quite irritable. Affect appears hostile. He is often nonresponsive to questions. He does report prominent auditory hallucinations with some paranoia. He also reports depression with suicidal thoughts. He is not volunteering any homicidal thoughts. Insight and judgment appear quite poor. Patient a potential danger to himself. ASSESSMENT: This is a patient with schizophrenia with poor medication compliance with multiple relapses to substances over the decades. DIAGNOSES: Schizoaffective disorder, depressed. Opiate use disorder. Cannabis use disorder. Stimulant use disorder. PROBLEM LIST: Depression. Risk for suicide. Substance use. PLAN: Patient refuses any psychotropics at this time. He claims that nothing works. Patient states he is tired from not getting much sleep but promises to be more forthcoming tomorrow. 9.39 to be confirmed. Patient to be encouraged to contribute and to access milieu therapy.
[2016-10-06 06:32] VITALS: BP 165/89
[2016-10-06] MEDS ORDERED: MOM 30ML SUSPENSION UDC PO PRN (16:15)
[2016-10-06] MEDS ORDERED: ACETAMINOPHEN TAB 650MG DOSE (2X325MG) PO PRN (16:15)
[2016-10-06] MEDS: NICOTINE 21MG/24HR 1 EA TRANSDERMAL TD SCH (16:49)
[2016-10-06] MEDS: risperiDONE 1 MG TAB PO SCH ×2 (16:49→20:04)
--- NOTE | 2016-10-06 17:12 | IPN ---
DATE: 10/06/2016 Temperature 96.0, pulse 67, respirations 16, blood pressure 165/89. CURRENT MEDICATIONS: None. PSYCHIATRIC HISTORY: Patient has been isolating ever since he got on the unit. He refuses one-one-one with the counselors. He is not going to groups. He stays in bed all day. He is resistant to any interaction. Patient complains that he feels sick to his stomach. He is not sure exactly why. He feels depressed. His chief complaint is the hallucinations. Patient was on Invega Sustenna previously, which apparently did work for him according to previous providers, even though he denies it. He is going to go on a trial of Risperdal. He refuses to talk about any situational stressors or about his history of recent drug use. No other collaterals are available to obtain clinical history. MENTAL STATUS EXAMINATION: Patient resting quietly. He is easily arousable. He is quite irritable, however. He is a poor historian. He is oppositional. He appears angry and hostile. He reports hearing voices as well as some paranoia. He reports feeling depressed. Affect does appear to be sad. Insight and judgment appear quite impaired. ASSESSMENT: Patient appears to be quite depressed and psychotic as well as some characterologic issues. DIAGNOSES: 1. Schizoaffective disorder, depressed. 2. Opiate use disorder. 3. Cannabis use disorder. 4. Stimulant use disorder. PLAN: Start trial on Risperdal 1 mg four times a day. Patient also given Haldol as needed. Controlled substances, such as Ativan and Klonopin, are contraindicated for this drug-using patient. Patient encouraged to become involved in hospital milieu. Staff will attempt to get permission to reach out to friends and family for collateral input.
[2016-10-06 18:00] VITALS: BP 128/80
[2016-10-06] MEDS ORDERED: BUPRENORPHINE/NALOXONE 8-2MG SUBLINGUAL TABLET(SUBOXONE) SL ONE (19:45)
[2016-10-06] MEDS: traZODone 50 MG TAB PO PRN (20:04)
[2016-10-06] MEDS: HALOPERIDOL 5 MG TAB PO PRN (20:04)
[2016-10-06] MEDS: MAALOX 30 ML SUSP *UDC PO PRN (22:50)
[2016-10-07 06:28] VITALS: BP 121/76
[2016-10-07] MEDS: NICOTINE 21MG/24HR 1 EA TRANSDERMAL TD SCH (09:25)
[2016-10-07] MEDS: risperiDONE 1 MG TAB PO SCH ×4 (09:25→21:20)
--- NOTE | 2016-10-07 09:55 | EDDOCDS ---
Physician Documentation [facility] Name: Vitaliy Alex Age: 46 yrs Sex: Male : 1970 Arrival Date: 10/04/2016 Time: 15:43 Bed OBSERVATION Private MD: NO PRIMARY PHYSICIAN, . Disposition: 10/05/16 07:50 Hospitalization ordered by Vero Ruth for Inpatient Admission. Preliminary diagnosis is Schizoaffective disorders. - Bed requested for Admit. - Status is Inpatient Admission. mk4 - Condition is Stable. - Problem is an acute exacerbation. - Symptoms are unchanged. Historical: - Allergies: no known allergies; - Home Meds: 1. Suboxone SL 1 tab twice daily 2. invega IM monthly - PMHx: opiod addiction; - PSHx: Appendectomy; Tonsillectomy; right leg surgery; right hand surgery; right knee surgery; - Social history: Smoking status: Patient uses tobacco products, heavy tobacco smoker. No barriers to communication noted, The patient speaks fluent Lao. - Family history: Not pertinent. - : The pt / caregiver states he / she is not on anticoagulants. Home medication list is obtained from the patient. - Exposure Risk Screening:: None identified. Vital Signs: 10/04 16:00 BP 145 / 92; Pulse 95; Resp 16; Temp 98.5(T); Pulse Ox 94% on R/A; Weight 65.77 kg / mcp 145 lbs; Height 5 ft. 7 in. (170.18 cm); Pain 0/10; 20:50 BP 140 / 96; Pulse 91; Resp 18; Temp 98.8(T); Pulse Ox 96% on R/A; Pain 0/10; rw1 10/05 06:00 BP 164 / 95 LA Supine; Pulse 71; Resp 16; Temp 97.2(T); Pulse Ox 96% on R/A; Pain 0/10; rw1 08:50 BP 150 / 84; Pulse 72; Resp 18; Temp 99(TE); Pulse Ox 96% on R/A; Pain 0/10; mk4 10/04 16:00 Body Mass Index 22.71 (65.77 kg, 170.18 cm) mcp 06:00 MD aware rw1 MDM: 10/04 15:49 Consult PFS/PSA/Rn Tele ordered. sd1 15:49 Consult PFS/PSA/Rn Tele: Patient's case requires discussion with on-call sd1 Psychiatrist ordered. 15:49 PSA/PFS to call Nursing Steam Shovelman, to enter patient data on [place] Safe [place] if patient sd1 involuntarily admitted or transferred for SI or HI ordered. 15:49 Confirm accurate psychiatric medication list and times of last dosage ordered. sd1 15:49 Detain Pt Until Medically/PFS Cleared ordered. sd1 15:50 Acetaminophen Level Ordered. EDMS 15:50 Basic Metabolic Profile Ordered. EDMS 15:50 Complete Blood Count Ordered. EDMS 15:50 Drug Eval Toxicology ED Only Ordered. EDMS 15:50 Ethyl Alcohol (ethanol) Ordered. EDMS 15:50 Liver Profile Ordered. EDMS 15:50 Salicylate Level Ordered. EDMS 15:50 Thyroid Stimulating Hormone Ordered. EDMS 16:04 REGULAR DIET PLASTIC ANTHONY+DIET ordered. EDMS 19:11 Acetaminophen Level Reviewed. ml 19:11 Basic Metabolic Profile Reviewed. ml 19:11 Complete Blood Count Reviewed. ml 19:11 Liver Profile Reviewed. ml 19:11 Salicylate Level Reviewed. ml 19:11 Ethyl Alcohol (ethanol) Reviewed. ml 19:11 Thyroid Stimulating Hormone Reviewed. ml 19:14 Misc. Nursing Order ordered. ml 19:18 Suboxone 8 mg-2 mg 1 tabs Sublingual now ordered. ml 20:45 Consult PFS/PSA/Rn Tele complete. hm1 20:45 Consult PFS/PSA/Rn Tele: Patient's case requires discussion with on-call 1 Psychiatrist complete. 20:45 PSA/PFS to call Nursing Steam Shovelman, to [place] if patient hm1 involuntarily admitted or transferred for SI or HI complete. 20:53 Drug Eval Toxicology ED Only Reviewed. ml 04 04:17 REGULAR DIET PLASTIC ANTHONY+DIET ordered. EDMS 05:45 Awaiting: The patient is awaiting psychiatric admission or transfer. All labs and pc investigations have been reviewed. The vital signs have been reviewed. The patient remains medically cleared for disposition. 07:22 Admit to [facility]: ordered. EDMS 07:28 [facility] Legal paperwork was scanned into ideeli and attached to record. rb 08:44 Financial registration complete. mm15 08:45 [facility] Payment Agreement was scanned into ideeli and attached to record. mm15 15:09 T-Sheet-- Draft Copy was scanned into ideeli and attached to record. gb Administered Medications: 10/04 20:44 Drug: Suboxone 8 mg-2 mg 1 tabs Route: Sublingual; rw1 10/05 04:16 Follow up: Response: No Adverse Reaction rw1 Signatures: Dispatcher [employer] EDMS Pepe Avalos MD MD pc Delaney-Rowland, Sarah, MD MD sd1 Olivia Robins MD MD ml Peters, Mary RN RN mcp Christina Rodríguez, PSA PSA rb Arlene Jacobson, Reg Reg gb Sunshine Krause, PSA PSA hm1 Niharika Garber mm15 Gena Arcos RN RN 4 Ward Ash LPN rw1 The chart was reviewed and I authenticate all verbal orders and agree with the evaluation and treatment provided.Attachments: 08:45 [facility] Payment Agreement mm15 15:09 T-Sheet-- Draft Copy gb Chart Complete MTDD
--- NOTE | 2016-10-07 09:55 | EDDOCDS ---
Physician Documentation [facility] Name: Vitaliy Alex Age: 46 yrs Sex: Male : 1970 Arrival Date: 10/04/2016 Time: 15:43 Bed OBSERVATION Private MD: NO PRIMARY PHYSICIAN, . Disposition: 10/05/16 07:50 Hospitalization ordered by Vero Ruth for Inpatient Admission. Preliminary diagnosis is Schizoaffective disorders. - Bed requested for Admit. - Status is Inpatient Admission. mk4 - Condition is Stable. - Problem is an acute exacerbation. - Symptoms are unchanged. Historical: - Allergies: no known allergies; - Home Meds: 1. Suboxone SL 1 tab twice daily 2. invega IM monthly - PMHx: opiod addiction; - PSHx: Appendectomy; Tonsillectomy; right leg surgery; right hand surgery; right knee surgery; - Social history: Smoking status: Patient uses tobacco products, heavy tobacco smoker. No barriers to communication noted, The patient speaks fluent Maltese. - Family history: Not pertinent. - : The pt / caregiver states he / she is not on anticoagulants. Home medication list is obtained from the patient. - Exposure Risk Screening:: None identified. Vital Signs: 10/04 16:00 BP 145 / 92; Pulse 95; Resp 16; Temp 98.5(T); Pulse Ox 94% on R/A; Weight 65.77 kg / mcp 145 lbs; Height 5 ft. 7 in. (170.18 cm); Pain 0/10; 20:50 BP 140 / 96; Pulse 91; Resp 18; Temp 98.8(T); Pulse Ox 96% on R/A; Pain 0/10; rw1 10/05 06:00 BP 164 / 95 LA Supine; Pulse 71; Resp 16; Temp 97.2(T); Pulse Ox 96% on R/A; Pain 0/10; rw1 08:50 BP 150 / 84; Pulse 72; Resp 18; Temp 99(TE); Pulse Ox 96% on R/A; Pain 0/10; mk4 10/04 16:00 Body Mass Index 22.71 (65.77 kg, 170.18 cm) mcp 06:00 MD aware rw1 MDM: 10/04 15:49 Consult PFS/PSA/Digital Service Engineer ordered. sd1 15:49 Consult PFS/PSA/Digital Service Engineer: Patient's case requires discussion with on-call sd1 Psychiatrist ordered. 15:49 PSA/PFS to call Nursing Rental Counter Clerk, to [place] if patient sd1 involuntarily admitted or transferred for SI or HI ordered. 15:49 Confirm accurate psychiatric medication list and times of last dosage ordered. sd1 15:49 Detain Pt Until Medically/PFS Cleared ordered. sd1 15:50 Acetaminophen Level Ordered. EDMS 15:50 Basic Metabolic Profile Ordered. EDMS 15:50 Complete Blood Count Ordered. EDMS 15:50 Drug Eval Toxicology ED Only Ordered. EDMS 15:50 Ethyl Alcohol (ethanol) Ordered. EDMS 15:50 Liver Profile Ordered. EDMS 15:50 Salicylate Level Ordered. EDMS 15:50 Thyroid Stimulating Hormone Ordered. EDMS 16:04 REGULAR DIET PLASTIC ANTHONY+DIET ordered. EDMS 19:11 Acetaminophen Level Reviewed. ml 19:11 Basic Metabolic Profile Reviewed. ml 19:11 Complete Blood Count Reviewed. ml 19:11 Liver Profile Reviewed. ml 19:11 Salicylate Level Reviewed. ml 19:11 Ethyl Alcohol (ethanol) Reviewed. ml 19:11 Thyroid Stimulating Hormone Reviewed. ml 19:14 Misc. Nursing Order ordered. ml 19:18 Suboxone 8 mg-2 mg 1 tabs Sublingual now ordered. ml 20:45 Consult PFS/PSA/Digital Service Engineer complete. hm1 20:45 Consult PFS/PSA/Digital Service Engineer: Patient's case requires discussion with on-call 1 Psychiatrist complete. 20:45 PSA/PFS to call Nursing Rental Counter Clerk, to [place] if patient hm1 involuntarily admitted or transferred for SI or HI complete. 20:53 Drug Eval Toxicology ED Only Reviewed. ml 04 04:17 REGULAR DIET PLASTIC ANTHONY+DIET ordered. EDMS 05:45 Awaiting: The patient is awaiting psychiatric admission or transfer. All labs and pc investigations have been reviewed. The vital signs have been reviewed. The patient remains medically cleared for disposition. 07:22 Admit to [facility]: ordered. EDMS 07:28 [facility] Legal paperwork was scanned into Marqui and attached to record. rb 08:44 Financial registration complete. mm15 08:45 [facility] Payment Agreement was scanned into Marqui and attached to record. mm15 15:09 T-Sheet-- Draft Copy was scanned into Marqui and attached to record. gb Administered Medications: 10/04 20:44 Drug: Suboxone 8 mg-2 mg 1 tabs Route: Sublingual; rw1 10/05 04:16 Follow up: Response: No Adverse Reaction rw1 Signatures: Dispatcher [employer] EDMS Pepe Avalos MD MD pc Delaney-Rowland, Sarah, MD MD sd1 Olivia Robins MD MD ml Peters, Mary RN RN mcp Christina Rodríguez, PSA PSA rb Arlene Jacobson, Reg Reg gb Sunshine Krause, PSA PSA hm1 Niharika Garber mm15 Gena Arcos RN RN 4 Ward Ash LPN rw1 The chart was reviewed and I authenticate all verbal orders and agree with the evaluation and treatment provided.Attachments: 08:45 [facility] Payment Agreement mm15 15:09 T-Sheet-- Draft Copy gb Chart Complete MTDD
--- NOTE | 2016-10-07 09:55 | EDDOCDS ---
Nurse's Notes [facility] Name: Vitaliy Alex Age: 46 yrs Sex: Male : 1970 Arrival Date: 10/04/2016 Time: 15:43 Bed OBSERVATION Private MD: NO PRIMARY PHYSICIAN, . Diagnosis: Schizoaffective disorders Presentation: 10/04 15:57 Presenting complaint: Patient states: Made statement that he was going to hurt self and mcp was picked up by police. Mental Health Triage Level: Level 2: The patient displays active suicidal ideations. The patient was brought to the ED for evaluation because of a legal pickup order. Adult Sepsis Screening: The patient does not have new or worsening altered mentation. Patient's respiratory rate is less than 22. Systolic blood pressure is greater than 100. Patient has a qSOFA score of 0- Negative Sepsis Screen. Suicide/Homicide risk assessment- The patient admits to and/or has been reported to be having suicidal ideations. The patient reports that he/she has a recent or current history of substance abuse. The patient reports that he/she has a prior history of suicide attempt and/or organized plan. The patient reports that he/she lacks adequate social support. The patient reports he/she has significant chronic medical condition(s). Status: Patient is not a account services coordinator or dependent. Transition of care: patient was not received from another setting of care. 15:57 Acuity: KATI Level 3 [facility] 15:57 Method Of Arrival: Police Car [facility] Triage Assessment: 16:01 General: Appears in no apparent distress, Behavior is cooperative. Pain: Denies pain. [facility] HIV screening NA for this visit Offered previously. Historical: - Allergies: no known allergies; - Home Meds: 1. Suboxone SL 1 tab twice daily 2. invega IM monthly - PMHx: opiod addiction; - PSHx: Appendectomy; Tonsillectomy; right leg surgery; right hand surgery; right knee surgery; - Social history: Smoking status: Patient uses tobacco products, heavy tobacco smoker. No barriers to communication noted, The patient speaks fluent Faroese. - Family history: Not pertinent. - : The pt / caregiver states he / she is not on anticoagulants. Home medication list is obtained from the patient. - Exposure Risk Screening:: None identified. Screenin:01 Screening information is obtained from the patient. Fall risk: No risks identified. mcp Assistance ADL's: requires no assistance with activities of daily living. Abuse/DV Screen: The patient / caregiver reports he/she is: not in a situation that causes fear, pain or injury. Nutritional screening: No deficits noted. Advance Directives: There is no active DNR order. home support is adequate. Assessment: 16:02 General: Appears in no apparent distress, comfortable, Behavior is cooperative. Pain: mcp Denies pain. Neurological: Level of Consciousness is awake, alert, Oriented to person, place, time, Moves all extremities. Gait is steady, Speech is normal. Respiratory: Airway is patent Respiratory effort is even, unlabored. Derm: Skin is pink, warm & dry. 17:01 General: Appears in no apparent distress, comfortable, Behavior is cooperative. Pain: mcp Denies pain. Neurological: No deficits noted. Respiratory: Airway is patent Respiratory effort is even, unlabored. Derm: Skin is pink, warm & dry. 18:00 General: Appears in no apparent distress, comfortable, Behavior is cooperative. Pain: mcp Denies pain. Neurological: Level of Consciousness is awake, alert, Oriented to person, place, time, Moves all extremities. Speech is normal. Respiratory: Airway is patent. Derm: Skin is pink, warm & dry. 19:00 General: Appears in no apparent distress, comfortable, Behavior is cooperative. Pain: mcp Denies pain. Neurological: Level of Consciousness is awake, alert, Oriented to person, place, time, Moves all extremities. Speech is normal. Respiratory: Airway is patent Respiratory effort is even, unlabored. Derm: Skin is pink, warm & dry. 20:08 General: Appears in no apparent distress, comfortable, Behavior is cooperative. af2 Neurological: Level of Consciousness is awake, alert. Respiratory: Airway is patent Respiratory effort is even, unlabored. Derm: Skin is pink, warm & dry. 20:51 General: Appears in no apparent distress, comfortable, Behavior is appropriate for age, rw1 cooperative. Pain: Denies pain. Neurological: Level of Consciousness is awake, alert, obeys commands, Oriented to person, place, time. Respiratory: Airway is patent Respiratory effort is even, unlabored. Derm: Skin is pink, warm & dry. normal. 22:00 Reassessment: Patient appears in no apparent distress at this time. resting quietly on rw1 stretcher, safety maintained will monitor.. 23:22 Reassessment: Patient appears in no apparent distress at this time. resting quietly on rw1 stretcher, safety maintained will monitor.. 10/05 00:38 Reassessment: Patient appears in no apparent distress at this time. lying on stretcher, af2 resting quietly with eyes closed, security observing, will continue to monitor. . Neurological: Level of Consciousness is awake, alert. Respiratory: Airway is patent Respiratory effort is even, unlabored. Derm: Skin is normal. 01:59 General: Appears in no apparent distress, comfortable, Behavior is quiet, resting on rw1 stretcher with eyes closed, safety maintained. Respiratory: Airway is patent Respiratory effort is even, unlabored. Derm: Skin is pink, warm & dry. normal. 03:09 Reassessment: Patient appears in no apparent distress at this time. resting quietly on rw1 stretcher, safety maintained will monitor.. 04:12 Reassessment: Patient appears in no apparent distress at this time. Patient denies pain cf2 at this time. Patient states feeling better. General: Patient calm and cooperative. Will continue to monitor. 05:01 General: Appears in no apparent distress, comfortable, Behavior is quiet, resting on rw1 stretcher with eyes closed, safety maintained. Respiratory: Airway is patent Respiratory effort is even, unlabored. Derm: Skin is pink, warm & dry. normal. 06:00 Reassessment: Patient appears in no apparent distress at this time. Patient denies pain rw1 at this time. resting quietly on stretcher, safety maintained will monitor.. 06:26 Reassessment: Patient appears in no apparent distress at this time. Patient denies pain cf2 at this time. Patient states feeling better. General: Patient calm and cooperative. Will continue to monitor. 07:30 Reassessment: Patient appears in no apparent distress at this time. Respiratory: kr3 Respiratory effort is even, unlabored. 08:50 General: Appears in no apparent distress, comfortable, to be sleeping. arouses readily mk4 for assessment denies any needs. Mental Health Eval: 10/04 20:45 Mental health consult is initiated at 20:30. Status: The patient is not a 1 account services coordinator or dependent. [facility] Behavioral Health: The patient is not an established patient of [facility] Behavioral Health. Referral Information: Evaluation referral is generated by the patient himself / herself. The patient was referred for evaluation because Pt contacted the [facility] crisis line reporting that he was hearing voices telling him to kill himself. Pt was brought into [facility] by police on . Subjective: The patients chief complaint is Pt was somewhat guarded and irritable, refused to give much information, reported that his voices are back and he worries that he's going to hurt himself because the voices are commanding him to do so. Pt reports numerous plans, stating that the voices tell him many different ways that he could hurt himself. . Delusions are paranoid, Patient's mood is dysphoric, irritable, Auditory Hallucinations are reported by the patient. Command hallucinations are reported by the patient. Pt reports sometimes feeling that others are talking about him, feels that people and the voices want him to hurt himself and they are helping him to work out plans to do so. Pt reports that he has been taking Invega and his Suboxone as prescribed through [facility]. Pt was unable to give any specific triggers or new stressors, states that he lives with his sister and they get along well. Mental Health history: abusing narcotics. paranoia, schizophrenia, sleep disturbance, Mental Health Admissions: pt has 5 previous psychiatric admissions, most recently 06/16/16, pt reports 5 previous suicide attempts Current Outpatient Mental Health Services: Psychiatrist / Agency: [facility]. Current living environment is Family / Home Support: pt lives with his sister. Patient presents to Emergency Department with the following symptoms within the past 2 weeks: depressed mood, drug abuse, auditory hallucinations stated by patient labile mood, sleep disturbance - insomnia, suicidal ideation with no plan. Substance abuse: when asked about alcohol or drug use pt states "yes", when asked if he wanted to give details pt refuses. Mental status exam: Patients appearance is appropriate, Patient's behavior is minimally responsive Speech is slow. Affect is flat. Mood is depressed. Auditory Hallucinations are reported by the patient. Appetite is normal. Memory is fair. Energy level is normal. Content of thought is paranoid. . Thought process is intact. Cognitive level is oriented to person, place, time and situation Patient's insight is fair. Judgement is poor. Rapport with interviewer is guarded. Suicidal Ideation is present with no specific plan. Homicidal ideation is denied. 23:16 Disposition: Medically cleared for disposition by Olivia Robins MD Psychiatric hm1 Consult is performed by phone with Dr Vero Ruth. [facility] Admission Criteria: The patient is experiencing suicidal ideation. The patient displays symptoms of severe psychiatric disorder resulting in disordered behavior and significant interference with his / her ability to maintain self care. Hallucinations. The patient requires continuous observation and/or control to protect self, others or property. The patient's care requires a multi-modal treatment plan under close supervision and coordination due to the complexity and severity of the patient's symptoms. The patient requires administration and monitoring of psychoactive medications by skilled medical providers due to the side effects of the psychoactive medications or significant dosage adjustments. Legal Status: Patient's legal status will be [facility] Services admission: . [place] because patient was registered less than 6 months ago. DSM-V Differential Diagnosis: Schizophrenia (F20.9). Narrative: at this time [facility] is at capacity, pt will be transferred to the nearest facility with available beds. Awaiting: referral hospital acceptance. 10/05 07:01 Legal Status: Patient's legal status will be Emergency admission: 939. rb Vital Signs: 10/04 16:00 BP 145 / 92; Pulse 95; Resp 16; Temp 98.5(T); Pulse Ox 94% on R/A; Weight 65.77 kg; [facility] Height 5 ft. 7 in. (170.18 cm); Pain 0/10; 20:50 BP 140 / 96; Pulse 91; Resp 18; Temp 98.8(T); Pulse Ox 96% on R/A; Pain 0/10; rw1 10/05 06:00 BP 164 / 95 LA Supine; Pulse 71; Resp 16; Temp 97.2(T); Pulse Ox 96% on R/A; Pain 0/10; rw1 08:50 BP 150 / 84; Pulse 72; Resp 18; Temp 99(TE); Pulse Ox 96% on R/A; Pain 0/10; mk4 10/04 16:00 Body Mass Index 22.71 (65.77 kg, 170.18 cm) [facility] 06:00 MD aware rw1 Vitals: 10/04 16:00 Log In time N/A- police car arrival. [facility] ED Course: 15:46 Patient visited by Kelly Collins. cmb 15:46 NO PRIMARY PHYSICIAN, . is Private Physician. cmb 15:46 Patient moved to Waiting cmb 15:46 Patient moved to [facility] cmb 15:58 Triage Initiated mcp 15:59 Patient visited by Amee Traore RN. mcp 16:01 Olivia Robins MD is Attending Physician. ml 16:01 Patient visited by Olivia Robins MD. ml 16:02 The patient / caregiver is instructed regarding the plan of care and ED course. Patient mcp has correct armband on for positive identification. Placed in psych safe attire. Bed in low position. Call light in reach. 16:03 Patient visited by Amee Traore RN. mcp 16:37 Patient visited by Yoan Foss. dpm 16:52 Patient visited by Yoan Foss. dpm 17:02 Patient visited by Amee Traore RN. mcp 17:29 Patient visited by Yoan Foss. dpm 17:41 Patient visited by Yoan Foss. dpm 18:08 Patient visited by Yoan Foss. dpm 18:45 Patient visited by Yoan Foss. dpm 19:01 Patient visited by Amee Traore RN. mcp 19:02 Patient visited by Yoan Foss. dpm 19:15 Psych Safety Check: Location: Psych Room. Visual Assessment: Cooperative. kb5 19:30 Psych Safety Check: Location: Psych Room. Visual Assessment: Cooperative. kb5 19:32 Patient visited by Chintan Bassett PCA. kb5 19:32 Drug Eval Toxicology ED Only Sent. rw1 19:45 Patient visited by Chintan Bassett PCA. kb5 19:45 Psych Safety Check: Location: Psych Room. Visual Assessment: Cooperative. kb5 19:50 Ward Ash LPN is Primary Nurse. rw1 20:00 Patient visited by Chintan Bassett PCA. kb5 20:00 Psych Safety Check: Location: Psych Room. Visual Assessment: Cooperative. kb5 20:09 Patient visited by Elin Dent RN. af2 20:15 Psych Safety Check: Location: Psych Room. Visual Assessment: Cooperative. kb5 20:18 Patient visited by Balmorhea, Chintan, PREVENTION RN. kb5 20:30 Psych Safety Check: Location: Psych Room. Visual Assessment: Cooperative. kb5 20:31 Patient visited by Germain Bassettistopher, PREVENTION RN. kb5 20:45 Psych Safety Check: Location: Psych Room. Visual Assessment: Cooperative. kb5 20:51 Patient visited by Danyelle, Chintan, PREVENTION RN. kb5 21:00 Patient visited by Germain Bassettistopher PREVENTION RN. kb5 21:00 Psych Safety Check: Location: Psych Room. Visual Assessment: Cooperative. kb5 21:15 Patient visited by Danyelle Chintan, PREVENTION RN. kb5 21:15 Psych Safety Check: Location: Psych Room. Visual Assessment: Cooperative. kb5 21:30 Patient visited by Germain Bassettistopher PREVENTION RN. kb5 21:30 Psych Safety Check: Location: Psych Room. Visual Assessment: Cooperative. kb5 21:45 Patient visited by Pako Bassettopher PREVENTION RN. kb5 21:45 Psych Safety Check: Location: Psych Room. Visual Assessment: Cooperative. kb5 22:00 Patient visited by Germain Bassettistopher PREVENTION RN. kb5 22:00 Psych Safety Check: Location: Psych Room. Visual Assessment: Cooperative. kb5 22:15 Patient visited by Germain Bassettistopher PREVENTION RN. kb5 22:15 Psych Safety Check: Location: Psych Room. Visual Assessment: Cooperative. kb5 22:30 Patient visited by Germain Bassettistopher PREVENTION RN. kb5 22:30 Psych Safety Check: Location: Psych Room. Visual Assessment: Cooperative. kb5 22:45 Patient visited by Pako Bassettopher PREVENTION RN. kb5 22:45 Patient moved to OBSERVATION oct 22:45 Psych Safety Check: Location: Psych Room. Visual Assessment: Cooperative. kb5 23:00 Patient visited by Ward Ash LPN. rw1 23:00 Psych Safety Check: Location: Psych Room. Visual Assessment: Cooperative. kb5 23:15 Psych Safety Check: Location: Psych Room. Visual Assessment: Cooperative. kb5 23:20 Patient visited by Pako Bassettopher PREVENTION RN. kb5 23:30 Psych Safety Check: Location: Psych Room. Visual Assessment: Cooperative. kb5 23:45 Psych Safety Check: Location: Psych Room. Visual Assessment: Cooperative. kb5 23:53 Patient visited by Chintan Bassett PREVENTION RN. kb5 01 00:00 Patient visited by Chintan Bassett PREVENTION RN. kb5 00:00 Psych Safety Check: Location: Psych Room. Visual Assessment: Cooperative. kb5 00:15 Psych Safety Check: Location: Psych Room. Visual Assessment: Cooperative. kb5 00:17 Patient visited by Ward Ash LPN. rw1 00:30 Psych Safety Check: Location: Psych Room. Visual Assessment: Cooperative. kb5 00:32 Patient visited by Chintan Bassett PREVENTION RN. kb5 00:45 Patient visited by Chintan Bassett PCA. kb5 00:45 Psych Safety Check: Location: Psych Room. Visual Assessment: Cooperative. kb5 00:48 role handed off by Brad Way PSA kb5 00:49 role handed off by Brendan Ramos PSA kb5 01:00 Primary Nurse role handed off by Ward Ash LPN cf2 01:00 Mckenzie Steele,RN is Primary Nurse. cf2 01:00 Patient visited by Mckenzie Steele,LEONIDAS. cf2 01:00 Psych Safety Check: Location: Psych Room. Visual Assessment: Cooperative. kb5 01:03 Patient visited by Chintan Bassett PREVENTION RN. kb5 01:15 Psych Safety Check: Location: Psych Room. Visual Assessment: Cooperative. kb5 01:17 Patient visited by Chintan Bassett PREVENTION RN. kb5 01:30 Psych Safety Check: Location: Psych Room. Visual Assessment: Cooperative. kb5 01:31 Patient visited by Chintan Bassett PREVENTION RN. kb5 01:45 Psych Safety Check: Location: Psych Room. Visual Assessment: Cooperative. kb5 01:52 Patient visited by Chintan Bassett PCA. kb5 02:00 Psych Safety Check: Location: Psych Room. Visual Assessment: Cooperative. kb5 02:15 Psych Safety Check: Location: Psych Room. Visual Assessment: Cooperative. kb5 02:24 Patient visited by Chintan Bassett PCA. kb5 02:30 Patient visited by Mckenzie Steele RN. cf2 02:30 Psych Safety Check: Location: Psych Room. Visual Assessment: Cooperative. kb5 02:44 Patient visited by Hector Montilla. jp4 02:45 Psych Safety Check: Location: Psych Room. Visual Assessment: Cooperative. kb5 03:00 Patient visited by Chintan Bassett PCA. kb5 03:00 Psych Safety Check: Location: Psych Room. Visual Assessment: Cooperative. kb5 03:15 Patient visited by Chintan Bassett PCA. kb5 03:15 Psych Safety Check: Location: Psych Room. Visual Assessment: Cooperative. kb5 03:30 Psych Safety Check: Location: Psych Room. Visual Assessment: Cooperative. kb5 03:31 Patient visited by Ward Ash LPN. rw1 03:45 Patient visited by Ward Ash LPN. rw1 03:45 Psych Safety Check: Location: Psych Room. Visual Assessment: Cooperative. kb5 04:00 Psych Safety Check: Location: Psych Room. Visual Assessment: Cooperative. kb5 04:04 Patient visited by Wadr Ash LPN. rw1 04:15 Psych Safety Check: Location: Psych Room. Visual Assessment: Cooperative. kb5 04:17 Patient visited by Chintan Bassett PCA. kb5 04:30 Patient visited by Chintan Bassett PCA. kb5 04:30 Psych Safety Check: Location: Psych Room. Visual Assessment: Cooperative. kb5 04:45 Patient visited by Chintan Bassett PCA. kb5 04:45 Psych Safety Check: Location: Psych Room. Visual Assessment: Cooperative. kb5 05:00 Psych Safety Check: Location: Psych Room. Visual Assessment: Cooperative. kb5 05:15 Psych Safety Check: Location: Psych Room. Visual Assessment: Cooperative. kb5 05:21 Patient visited by Chintan Bassett PCA. kb5 05:30 Psych Safety Check: Location: Psych Room. Visual Assessment: Cooperative. kb5 05:40 Patient visited by Chintan Bassett PCA. kb5 05:45 Attending Physician role handed off by Olivia Robins MD pc 05:45 Pepe Avalos MD is Attending Physician. pc 05:45 Patient visited by Chintan Bassett PCA. kb5 05:45 Psych Safety Check: Location: Psych Room. Visual Assessment: Cooperative. kb5 06:00 Patient visited by Chintan Bassett PCA. kb5 06:00 Psych Safety Check: Location: Psych Room. Visual Assessment: Cooperative. kb5 06:15 Patient visited by Chintan Bassett PREVENTION RN. kb5 06:15 Patient visited by Chintan Bassett PCA. kb5 06:15 Psych Safety Check: Location: Psych Room. Visual Assessment: Cooperative. kb5 06:26 Patient visited by Mckenzie Steele,LEONIDAS. cf2 06:30 Patient visited by Chintan Bassett PCA. kb5 06:30 Psych Safety Check: Location: Psych Room. Visual Assessment: Cooperative. kb5 06:45 Psych Safety Check: Location: Psych Room. Visual Assessment: Cooperative. kb5 06:55 Patient visited by Chintan Bassett PCA. kb5 07:00 Suzy Aguiar,LEONIDAS is Primary Nurse. ck1 07:00 Psych Safety Check: Location: Psych Room. Visual Assessment: Cooperative. kb5 07:05 Attending Physician role handed off by Pepe Avalos MD sd1 07:05 Emma Sanchez MD is Attending Physician. sd1 07:05 Patient visited by Chintan Bassett PCA. kb5 07:28 [facility] Legal paperwork was scanned into [employer] and attached to record. rb 07:50 Vero Ruth is Hospitalizing Provider. sd1 07:53 Patient visited by Amadeo Craft Security Aide. pjf 08:08 Patient visited by Amadeo Craft Security Aidsumeet. pjf 08:41 Patient visited by Gena Arcos RN. mk4 08:45 [place] [place] was scanned into [employer] and attached to record. mm15 08:50 No IV's were initiated during this patient's visit. No procedures done that require mk4 assistance. 15:09 T-Sheet-- Draft Copy was scanned into [employer] and attached to record. gb Administered Medications: 10/04 20:44 Drug: Suboxone 8 mg-2 mg 1 tabs Route: Sublingual; rw1 10/05 04:16 Follow up: Response: No Adverse Reaction rw1 Attachments: 07:28 E Legal paperwork rb Order Results: Lab Order: Acetaminophen Level; SPEC' 10/04/16 16:16 Test: ACETAMINOPHEN LEVEL; Value: < 2.0; Range: 10.0-30.0; Abnormal: Below low normal; Units: UG/ML; Status: F Lab Order: Basic Metabolic Profile; SPEC' 10/04/16 16:16 Test: GLUCOSE, FASTING; Value: 92; Range: 70-105; Units: MG/DL; Status: F Test: BLOOD UREA NITROGEN; Value: 13; Range: 7-18; Units: MG/DL; Status: F Test: CREATININE FOR GFR; Value: 0.99; Range: 0.70-1.30; Units: MG/DL; Status: F Test: GLOMERULAR FILTRATION RATE; Value: > 60.0; Range: >60; Status: F Test: SODIUM LEVEL; Value: 143; Range: 136-145; Units: MEQ/L; Status: F Test: POTASSIUM SERUM; Value: 4.2; Range: 3.5-5.1; Units: MEQ/L; Status: F Test: CHLORIDE LEVEL; Value: 108; Range: 98-107; Abnormal: Above high normal; Units: MEQ/L; Status: F Test: CARBON DIOXIDE LEVEL; Value: 29; Range: 21-32; Units: MEQ/L; Status: F Test: ANION GAP; Value: 6; Range: 8-16; Abnormal: Below low normal; Units: MEQ/L; Status: F Test: CALCIUM LEVEL; Value: 8.9; Range: 8.5-10.1; Units: MG/DL; Status: F Test Note: ; Units are mL/min/1.73 m2 Chronic Kidney Disease Staging per NKF: Stage I & II GFR >=60 Normal to Mildly Decreased Stage III GFR 30-59 Moderately Decreased Stage IV GFR 15-29 Severely Decreased Stage V GFR <15 Very Little GFR Left ESRD GFR <15 on CORN DETASSELER MACHINE OPERATOR Lab Order: Complete Blood Count; SPEC'M 10/04/16 16:16 Test: WHITE BLOOD COUNT; Value: 5.0; Range: 4.0-10.0; Units: K/mm3; Status: F Test: RED BLOOD COUNT; Value: 4.55; Range: 4.30-6.10; Units: M/mm3; Status: F Test: HEMOGLOBIN; Value: 13.5; Range: 14.0-18.0; Abnormal: Below low normal; Units: g/dl; Status: F Test: HEMATOCRIT; Value: 39.7; Range: 42.0-52.0; Abnormal: Below low normal; Units: %; Status: F Test: MEAN CORPUSCULAR VOLUME; Value: 87.2; Range: 80.0-96.0; Units: fl; Status: F Test: MEAN CORPUSCULAR HEMOGLOBIN; Value: 29.6; Range: 27.0-33.0; Units: pg; Status: F Test: MEAN CORPUSCULAR HGB CONC; Value: 33.9; Range: 32.0-36.5; Units: g/dl; Status: F Test: RED CELL DISTRIBUTION WIDTH; Value: 13.4; Range: 11.5-14.5; Units: %; Status: F Test: PLATELET COUNT, AUTOMATED; Value: 237; Range: 150-450; Units: k/mm3; Status: F Lab Order: Drug Eval Toxicology ED Only; SPEC'M 10/04/16 19:26 Test: AMPHETAMINES LEVEL URINE; Value: POSITIVE; Range: NEGATIVE; Abnormal: Above high normal; Status: F Test: BARBITURATES URINE; Value: NEGATIVE; Range: NEGATIVE; Status: F Test: BENZODIAZEPINES URINE; Value: NEGATIVE; Range: NEGATIVE; Status: F Test: CANNABINOIDS URINE; Value: NEGATIVE; Range: NEGATIVE; Status: F Test: COCAINE METABOLITE URINE; Value: POSITIVE; Range: NEGATIVE; Abnormal: Above high normal; Status: F Test: METHADONE URINE; Value: NEGATIVE; Range: NEGATIVE; Status: F Test: OPIATES URINE; Value: POSITIVE; Range: NEGATIVE; Abnormal: Above high normal; Status: F Test: TRICYCLIC ANTIDEPRESS URINE; Value: NEGATIVE; Range: NEGATIVE; Status: F Test Note: ; ALL PRESUMPTIVE POSITIVE FINDINGS ARE UNCONFIRMED NORMAL VALUES THRESHOLD IN NG/ML AMPHETAMINES 1000 METHAMPHETAMINES 1000 BARBITURATES 300 BENZODIAZEPINES 300 CANNABINOIDS (THC) 50 COCAINE METABOLITE 300 METHADONE 300 OPIATES 300 PHENCYCLIDINE 25 TRICYCLIC ANTIDEPRESSANTS 1000 RESULTS ARE FOR MEDICAL PURPOSES ONLY. ALL URINE SPECIMENS WILL BE SAVED FOR 3 DAYS. IF CONFIRMATION OF A PRESUMPTIVE POSTIVE SCREEN RESULT IS DESIRED, CALL CHEMISTRY ([id number]) AND REQUEST URINE TO BE SENT TO REFERENCE LAB. FOR A LIST OF CLOSELY RELATED COMPOUNDS PLEASE CALL THE LAB. Lab Order: Ethyl Alcohol (ethanol); SPEC'M 10/04/16 16:16 Test: ETHYL ALCOHOL (ETHANOL); Value: < 0.003; Range: 0.000-0.010; Units: %; Status: F Lab Order: Liver Profile; SPEC'M 10/04/16 16:16 Test: AST/SGOT; Value: 14; Range: 15-37; Abnormal: Below low normal; Units: U/L; Status: F Test: ALT/SGPT; Value: 30; Range: 12-78; Units: U/L; Status: F Test: ALKALINE PHOSPHATASE; Value: 121; Range: 45-117; Abnormal: Above high normal; Units: U/L; Status: F Test: BILIRUBIN,TOTAL; Value: 0.3; Range: 0.2-1.0; Units: MG/DL; Status: F Test: BILIRUBIN,DIRECT; Value: 0.1; Range: 0.0-0.2; Units: MG/DL; Status: F Test: TOTAL PROTEIN; Value: 6.8; Range: 6.4-8.2; Units: GM/DL; Status: F Test: ALBUMIN; Value: 3.6; Range: 3.2-5.2; Units: GM/DL; Status: F Test: ALBUMIN/GLOBULIN RATIO; Value: 1.13; Range: 1.00-1.93; Status: F Lab Order: Salicylate Level; SPEC' 10/04/16 16:16 Test: SALICYLATE LEVEL; Value: 3.4; Range: 5.0-30.0; Abnormal: Below low normal; Units: MG/DL; Status: F Lab Order: Thyroid Stimulating Hormone; SPEC'M 10/04/16 16:16 Test: THYROID STIMULATING HORMONE; Value: 0.807; Range: 0.358-3.740; Units: uIU/ML; Status: F Outcome: 07:50 Decision to Hospitalize by Provider. sd1 08:50 Discharge Assessment: Patient awake, alert and oriented x 3. No cognitive and/or mk4 functional deficits noted. Patient verbalized understanding of disposition instructions. Patient awake and alert. patient administered narcotics - no. The following High Risk Discharge criteria are identified: None. Admitted to Psych accompanied by tech, via wheelchair, with chart. Condition: stable. No special radiology studies were completed. Property left with pt per adonis LAUREN. 08:54 Patient left the ED. mk4 Signatures: Pepe Avalos MD MD pc Delaney-Rowland, Sarah, MD MD sd1 Olivia Robins MD MD ml Twin, Monika Ashraf, RN LEONIDAS Traore, Amee, RN RN mcp Rodríguez, Christina, PSA PSA rb Kavon, Arlene, Reg Reg gb Venancio, Amadeo, Security Aide Securpalli Aguiar,Suzy,RN RN ck1 Irish Virgen,RN RN kr3 Nilsa,Ward,HIGHWAY ENGINEERING TEACHER HIGHWAY ENGINEERING TEACHER rw1 Chintan Bassett, PREVENTION RN PREVENTION RN kb5 Sunshine Krause, PSA PSA hm1 Yoan Foss dpm Kelly Collins cmb Niharika Garber mm15 Gena Arcos, RN RN mk4 Hector Montilla jp4 Elin Dent,RN RN af2 Mckenzie Steele,RN RN cf2 Chart Complete MTDD
[2016-10-07] MEDS ORDERED: BUPRENORPHINE/NALOXONE 8-2MG SUBLINGUAL TABLET(SUBOXONE) SL ONE (17:00)
[2016-10-07 18:21] VITALS: BP 130/85
[2016-10-07] MEDS: traZODone 50 MG TAB PO PRN (21:20)
--- NOTE | 2016-10-08 05:13 | IPN ---
DATE OF SERVICE: 10/07/2016 VITAL SIGNS: Temperature 96.7, pulse 71, respirations 18, blood pressure 121/76. CURRENT MEDICATION: - Risperdal 1 mg four times a day - trazodone 50 mg nightly as needed - Haldol 5 mg every 4 hours as needed for agitation PSYCHIATRIC HISTORY: Patient's daughter came in last night during visiting hours and was upset the patient had not been placed on Suboxone. Apparently, he has been on Suboxone for a number of years from an outpatient provider. However, the patient had never voiced any concern about this during our meetings. Patient is more verbal today. He is more willing to talk to me. His chief complaints are primarily somatic. He complains of back pain. He states that his depression is better, but he claims that the voices are "extremely loud." He claims they talk so loud and are so distracting that it is hard for him to even have a conversation. Patient states that there have been no major precipitating stressors for his decompensation. He had claimed that no antipsychotics are helpful. He is agreeable to taking the Risperdal, however. He claims his appetite is good. He claims he sleeps well ay night. He claims he likes to sleep a lot during the daytime just to escape the voices. Patient would like to continue his maintenance Suboxone treatment. He gives permission for staff to contact his outpatient provider to confirm his prescription. Patient is isolating in the milieu, not attending program or interacting with his peers. MENTAL STATUS EXAMINATION: The patient is somewhat more verbal today. He is willing to come out of his room. For example, come to my office. He is less hostile. He is still hearing voices. He feels paranoid. He feels people are talking about him. He states his depression, however, is less prominent. Not voicing any current homicidal, suicidal thoughts. Insight and judgment remain poor. ASSESSMENT: Patient will be restarted on the Suboxone assuming he has an outpatient provider willing to take over prescription upon discharge. DIAGNOSES: 1. Schizoaffective disorder, depressed. 2. Opiate use disorder. 3. Cannabis use disorder. 4. Stimulant use disorder. PLAN: Continue Risperdal. Possible resumption of Suboxone if criteria met above. Patient to followup with new provider as today is my last day here at the hospital.
[2016-10-08 06:45] VITALS: BP 128/77
[2016-10-08] MEDS: NICOTINE 21MG/24HR 1 EA TRANSDERMAL TD SCH (08:29)
[2016-10-08] MEDS: risperiDONE 1 MG TAB PO SCH ×2 (08:29→13:32)
[2016-10-08] MEDS: BUPRENORPHINE/NALOXONE 8-2MG SUBLINGUAL TABLET(SUBOXONE) SL SCH ×2 (08:29→20:07)
[2016-10-08] MEDS: MAALOX 30 ML SUSP *UDC PO PRN (17:42)
--- NOTE | 2016-10-08 17:46 | IPN ---
DATE: 10/08/2016 TREATMENT: The patient is in his 5th day of inpatient admission. He was hospitalized as a result of presenting with a history of auditory hallucinations , mostly command in nature, telling him to harm himself. He is diagnosed with schizoaffective disorder and previously prescribed Invega tablets; however, his medication was recently switched to risperidone 1 mg orally four times daily. In addition, he received trazodone 50 mg at bedtime as needed for insomnia. He also is provided with group, individual, and activity therapies. He reports to me that he feels "a little bit better; the medication is beginning to work"; however, he says he stills hears voices but not as intense. He is compliant with his medication and no reported medication adverse effects. OBSERVATION: VITAL SIGNS: Blood pressure 128/77, pulse 68, respirations 16, and temperature 96.1. He is adequately groomed and dressed in [facility]. No evidence of extrapyramidal symptoms (EPS) or tardive dyskinesia. His speech is of normal volume, rate, and rhythm. Thought process is coherent and goal directed. Mood is described as not depressed. Affect is appropriate. He denies active suicidal thoughts, plan, or intent as well as homicidal ideation. ASSESSMENT: Patient is responding relatively well to treatment; however, he continues to experience auditory hallucinations and would require further inpatient stabilization. PLAN: He will be continued on current dose of risperidone; however, the dose will be consolidated to a single 4 mg bedtime dosing. Ongoing assessment and supportive therapy. MTDD
[2016-10-08 18:00] VITALS: BP 101/58
[2016-10-08] MEDS: traZODone 50 MG TAB PO PRN (20:07)
[2016-10-08] MEDS ORDERED: risperiDONE 1 MG TAB PO ONE (21:00)
[2016-10-09] MEDS: LEVOTHYROXINE 0.025 MG TAB (25 MCG) PO SCH (06:13)
[2016-10-09 06:41] VITALS: BP 134/75
[2016-10-09] MEDS: BUPRENORPHINE/NALOXONE 8-2MG SUBLINGUAL TABLET(SUBOXONE) SL SCH ×2 (08:49→20:07)
[2016-10-09] MEDS: NICOTINE 21MG/24HR 1 EA TRANSDERMAL TD SCH (08:49)
[2016-10-09 18:34] VITALS: BP 122/87
[2016-10-09] MEDS: traZODone 50 MG TAB PO PRN (20:06)
[2016-10-09] MEDS: risperiDONE 2 MG TAB PO SCH (20:06)
[2016-10-10 05:58] VITALS: BP 135/67
[2016-10-10] MEDS: LEVOTHYROXINE 0.025 MG TAB (25 MCG) PO SCH (06:23)
[2016-10-10] MEDS: NICOTINE 21MG/24HR 1 EA TRANSDERMAL TD SCH (08:24)
[2016-10-10] MEDS: BUPRENORPHINE/NALOXONE 8-2MG SUBLINGUAL TABLET(SUBOXONE) SL SCH ×2 (08:24→18:44)
[2016-10-10 18:25] VITALS: BP 134/90
--- NOTE | 2016-10-10 19:46 | IPN ---
DATE: 10/10/2016 TREATMENT: Today is the 7th day of inpatient hospitalization for patient and he is prescribed Risperdal 1 mg already at bedtime with trazodone 50 mg at bedtime given on an as needed basis for insomnia. He reports that he is doing good and presents with no new complaints. He requested to be discharged the next day and states that he is feeling less depressed and no longer has any thoughts of suicide. OBSERVATION: VITAL SIGNS: Stable. Blood pressure 131/63, pulse 66, respirations 16, and temperature 96.6. The patient is calm. He is cooperative, appropriately dressed. Grooming is fair. Mood is less depressed. No psychotic features or evidence. He denies suicidal or homicidal thoughts, plans, or intent. ASSESSMENT: The patient has improved notably and currently maintaining treatment stability. PLAN: He will be reassessed in 24-hours and if stable we will schedule for discharge same day. EITAN
[2016-10-10] MEDS: HALOPERIDOL 5 MG TAB PO PRN (21:25)
[2016-10-10] MEDS: risperiDONE 2 MG TAB PO SCH (21:25)
[2016-10-10] MEDS: traZODone 50 MG TAB PO PRN (21:25)
[2016-10-11 06:07] VITALS: BP 132/77
[2016-10-11] MEDS: LEVOTHYROXINE 0.025 MG TAB (25 MCG) PO SCH (06:11)
[2016-10-11] MEDS ORDERED: NICO21PAT TD (08:18)
[2016-10-11] MEDS ORDERED: LEVO25TA5 PO (08:18)
[2016-10-11] MEDS: BUPRENORPHINE/NALOXONE 8-2MG SUBLINGUAL TABLET(SUBOXONE) SL SCH (08:22)
[2016-10-11] MEDS: NICOTINE 21MG/24HR 1 EA TRANSDERMAL TD SCH (08:22)
[2016-10-11] MEDS ORDERED: RISP2TAB30 PO (11:08)
--- NOTE | 2016-10-11 16:38 | MHDS ---
DATE OF ADMISSION: 10/05/2016 DATE OF DISCHARGE: 10/11/2016 HISTORY: The patient is a 46-year-old [place] man who was admitted after he presented at the emergency department with complaints of command auditory hallucinations telling him to commit suicide. The patient has a history of chronic substance use and schizophrenia. He was hospitalized here at [facility] last June and placed on Invega, apparently with good response. However, he dropped out of mental health treatment. He claimed that the medications were no longer helping him so he stopped taking them. He stopped getting the Invega injections. He claimed that his hallucinations then returned full force. The auditory hallucinations were commanding him to plan various suicide attempts. The patient also reported feeling depressed with poor appetite and weight loss up to six pounds. He also reported that his concentration was quite impaired. He, in addition, stated that he had multiple stressors in his life, however when queried about details he refused to provide any. In addition to his psychiatric problems, he has a history of polysubstance use, heroin had been his drug of choice, he last used, he claimed, a week prior to his coming to admission. He also had been on Suboxone therapy, up to 8 mg of Suboxone sublingually twice daily. In addition, to named opioids, he also has tried methamphetamine, Melissa, cannabis, and Xanax in the past. MEDICAL HISTORY: Notable for gastroesophageal reflux disease and hypertension. SOCIAL AND FAMILY HISTORY: Patient lives with his sister. He has a family in [place]. Patient has a history of long [facility] terms. He is currently not on probation or parole. HOSPITAL COURSE: On admission he was noted to be irritable, appeared quite hostile, and nonresponsive to most questions. He did report prominent auditory hallucinations with some paranoia. He reported depression and suicidal thoughts , however he volunteered no specifics when asked to provide same. Admission diagnoses was schizoaffective disorder, depressed, opioid use disorder, cannabis use disorder, stimulant use disorder. He was started on risperidone 1 mg with the dosage subsequently increased to his current of 4 mg orally at bedtime. In addition, he was also prescribed buprenorphine (Suboxone) 8 mg twice daily sublingually. He was also prescribed levothyroxine 0.25 mg daily for management of hypothyroidism. In addition to medication management, he received group, individual, and activity therapies. He progressively showed improvements and was no management problem on the unit. He subsequently began to interact more with his peers and engaged in therapeutic activities. No notable untoward affect noted. MENTAL STATUS EXAMINATION ON DISCHARGE: He was noted to be adequately groomed and appropriately dressed. He presented with appropriate mannerisms. No abnormal speech or thought process. No delusions present and no evidence of hallucination and he did not appear to be responding to internal stimuli. His mood improved significantly and he denied suicidal thoughts, plans, or intention as well as homicidal ideation. Overall, he showed notable improvement and maintained treatment stability and did not appear to further pose substantial risk to self or to others. VITAL SIGNS ON DISCHARGE: Blood pressure 128/77, pulse 72, respirations 20, and temperature 96.7. DISCHARGE DIAGNOSES: 1. Schizoaffective disorder, depressed. 2. Opioid use disorder. DISCHARGE MEDICATIONS: - risperidone 4 mg orally nightly - buprenorphine 8/2 mg sublingual twice daily - levothyroxine 0.25 mg orally daily DISCHARGE INSTRUCTIONS: Patient instructed to followup within 72 hours with his primary care mental health provider. Discharge plan discussed with the patient and he demonstrated understanding and was in agreement. EITAN
== END 2016-10-11 11:55 | disposition home or self-care (01) | DRG 750 ==
LOC: M ED 15:43 → M PSY 10-05 08:59
PROVIDERS: ADMIT Psychiatry & Neurology Psychiatry; ATTEND Psychiatry & Neurology Psychiatry
DX: F25.1 Schizoaffective disorder, depressive type (principal); I10 Essential (primary) hypertension; F11.90 Opioid use, unspecified, uncomplicated; Z79.899 Other long term (current) drug therapy; K21.9 Gastro-esophageal reflux disease without esophagitis; F17.200 Nicotine dependence, unspecified, uncomplicated; B18.2 Chronic viral hepatitis C

== ENCOUNTER 2016-11-16 04:02 | Emergency (ER) | payer OTHER ==
[~2016-11-16 04:02] MED LIST changes: +RISP2TAB30 PO
--- NOTE | 2016-11-16 06:20 | REPUSA ---
CLINICAL HISTORY: Head trauma. TECHNIQUE: Multiple axial brain CT scan sections were obtained from base to vertex without contrast a dministration. COMMENTS: There is no evidence of skull fracture. The study shows normal configuration of sella turcica. There are no intra or extra-axial collections. There is no mass effect or midline shift. There is no evidence of hematoma formation. No hydrocephal us is present. No abnormal calcifications are noted. No significant abnormalities are seen either in the posterior fossa or supratentorial compartment. Mild chronic maxillary and ethmoid sinusitis. IMPRESSION: Mild chronic mucosal inflammatory changes of the mesentery sinuses and ethmoid air cells. No evidence of acute intracranial pathology. No intracranial hemorrhage or skull fracture. Thank you for your kind referral of this patient.
--- NOTE | 2016-11-16 06:32 | EDDOCDS ---
Physician Documentation [facility] Name: Vitaliy Alex Age: 46 yrs Sex: Male : 1970 Arrival Date: 11/16/2016 Time: 04:02 Bed 12 Private MD: Disposition: 11/16/16 06:24 Discharged to Home/Self Care. Impression: Sprain of ankle, Contusion of unspecified part of head. - Condition is Stable. - Medication Reconciliation, Local Pharmacy Hours form. - Follow up: Private Physician; When: Call to arrange an appointment; Reason: Recheck today's complaints. - Problem is new. - Symptoms have improved. Historical: - Allergies: No known drug Allergies; - Home Meds: 1. invega IM monthly 2. Suboxone SL 1 tab twice daily - PMHx: opiod addiction; - PSHx: Appendectomy; Tonsillectomy; right leg surgery; right hand surgery; right knee surgery; - Social history: Smoking status: Patient uses tobacco products, current every day smoker. No barriers to communication noted, The patient speaks fluent Bulgarian, Speaks appropriately for age. - Family history: Not pertinent. - : The pt / caregiver states he / she is not on anticoagulants. Home medication list is obtained from the patient. - Exposure Risk Screening:: None identified. Vital Signs: 11/16 04:10 BP 160 / 99; Pulse 109; Resp 16; Temp 99.6(TE); Pulse Ox 96% ; Weight 63.5 kg / 139.99 ko2 lbs; Height 5 ft. 7 in. (170.18 cm); Pain 5/10; 04:22 BP 156 / 109; Pulse 85; Resp 16; Pulse Ox 97% ; mv5 04:10 Body Mass Index 21.93 (63.50 kg, 170.18 cm) ko2 MDM: 04:20 Ankle, Complete Ordered. EDMS 04:36 [facility] Payment Agreement was scanned into [employer] and attached to record. pm4 05:33 Financial registration complete. pm4 05:43 CT Head Without Contrast Ordered. EDMS 06:24 Apply Air Cast to Patient. ordered. cs11 Signatures: Dispatcher [employer] EDMS Thomas Meade DO DO cs11 Keeley Carson RN RN ko2 Amadeo Watts, Reg Reg pm4 Vannedery,Sarina,RN RN mv5 The chart was reviewed and I authenticate all verbal orders and agree with the evaluation and treatment provided.Attachments: 04:36 [facility] Payment Agreement pm4 MTDD
--- NOTE | 2016-11-16 06:32 | EDDOCDS ---
Nurse's Notes [facility] Name: Vitaliy Alex Age: 46 yrs Sex: Male : 1970 Arrival Date: 11/16/2016 Time: 04:02 Bed 12 Private MD: Diagnosis: Sprain of ankle;Contusion of unspecified part of head Presentation: 11/16 04:05 Presenting complaint: Patient states: thinks he sprained his ankle when he fell and he ko2 also hit head on the ground and thinks lost consciousness. Pt states it happened about an hour and a half ago. Suicide/Homicide risk assessment- the patient denies having any suicidal and/or homicidal ideations and does not present with any other emotional, behavioral or mental health complaints. Status: Patient is not a equipment service technician or dependent. Transition of care: patient was not received from another setting of care. 04:05 Method Of Arrival: Walkin/Carried/Asstd ko2 04:05 Acuity: KATI Level 3 ko2 06:31 Adult Sepsis Screening: The patient does not have new or worsening altered mentation. mv5 Patient's respiratory rate is less than 22. Systolic blood pressure is greater than 100. Patient has a qSOFA score of 0- Negative Sepsis Screen. Triage Assessment: 04:08 General: Appears in no apparent distress, Behavior is appropriate for age, cooperative. ko2 Pain: Location: right ankle Pain currently is 6 out of 10 on a pain scale. HIV screening NA for this visit Offered previously. Neurological: Level of Consciousness is awake, alert, Oriented to person, place, time, Speech is normal, Pupils are PERRLA. Respiratory: Airway is patent Respiratory effort is even, unlabored. Derm: Skin abrasion to right back of head. Bleeding stopped Skin is pink, warm & dry. Musculoskeletal: Range of motion intact in all extremities. limited in right ankle. Historical: - Allergies: No known drug Allergies; - Home Meds: 1. invega IM monthly 2. Suboxone SL 1 tab twice daily - PMHx: opiod addiction; - PSHx: Appendectomy; Tonsillectomy; right leg surgery; right hand surgery; right knee surgery; - Social history: Smoking status: Patient uses tobacco products, current every day smoker. No barriers to communication noted, The patient speaks fluent Latvian, Speaks appropriately for age. - Family history: Not pertinent. - : The pt / caregiver states he / she is not on anticoagulants. Home medication list is obtained from the patient. - Exposure Risk Screening:: None identified. Screenin:17 Screening information is obtained from the patient. Fall risk: No risks identified. mv5 Recent fall was mechanical in nature. Pt states he slipped on ice.. Assistance ADL's: requires no assistance with activities of daily living. Abuse/DV Screen: The patient / caregiver reports he/she is: not in a situation that causes fear, pain or injury. Nutritional screening: No deficits noted. Advance Directives: There is no active DNR order. home support is adequate. Assessment: 05:17 General: Appears in no apparent distress, Behavior is cooperative, pleasant. Pain: mv5 Location: left parietal area, right parietal area and occipital area Pain currently is 5 out of 10 on a pain scale. Pain does not radiate. Aggravated by Turning head increases headache. Neurological: Level of Consciousness is awake, alert, Oriented to person, place, time, Moves all extremities. Speech is normal, Facial symmetry appears normal, Pupils are PERRLA, CMS intact. Reports possible LOC with fall.. Cardiovascular: Capillary refill < 3 seconds. Respiratory: Airway is patent Respiratory effort is even, unlabored, Respiratory pattern is regular, symmetrical. GI: No deficits noted. : No deficits noted. Derm: Skin is pink, warm & dry. Musculoskeletal: Reports pain in right ankle. Injury Description: pt fell from standing. 06:01 General: Appears in no apparent distress, to be sleeping. Respiratory: Airway is patent mv5 Respiratory effort is even, unlabored, Respiratory pattern is regular, symmetrical. Derm: Skin is pink, warm & dry. 06:29 General: Appears in no apparent distress. General: Pt fitted with right ankle air cast mv5 as ordered.. Vital Signs: 04:10 BP 160 / 99; Pulse 109; Resp 16; Temp 99.6(TE); Pulse Ox 96% ; Weight 63.5 kg; Height 5 ko2 ft. 7 in. (170.18 cm); Pain 5/10; 04:22 BP 156 / 109; Pulse 85; Resp 16; Pulse Ox 97% ; mv5 04:10 Body Mass Index 21.93 (63.50 kg, 170.18 cm) ko2 Vitals: 04:10 Log In Time: November 16, 2016 at 04:02. ko2 ED Course: 04:03 Patient visited by Christine Olvera. gjb 04:03 Patient moved to Waiting gjb 04:07 Triage Initiated ko2 04:20 Patient moved to Radiology babs 04:28 Patient moved to Waiting babs 04:36 Patient name changed from Vitaliy\S\R\S\Isai\S\ to Vitaliy\S\Ward\S\Isai. EDMS 04:36 [facility] Payment Agreement was scanned into [employer] and attached to record. pm4 05:04 Sarina Latham,LEONIDAS is Primary Nurse. ko2 05:04 Patient moved to 12 ko2 05:13 Patient visited by Sarina Latham RN. mv5 05:17 The patient / caregiver is instructed regarding the plan of care and ED course. Patient mv5 has correct armband on for positive identification. Call light in reach. 05:32 Thomas Meade DO is Attending Physician. cs11 05:32 Patient visited by Thomas Meade DO. cs11 06:05 Patient visited by Sarina Latham RN. mv5 06:29 No IV's were initiated during this patient's visit. No procedures done that require mv5 assistance. Order Results: There are currently no results for this order. Outcome: 06:24 Discharge ordered by Provider. cs11 06:29 Discharge Assessment: Patient awake, alert and oriented x 3. No cognitive and/or mv5 functional deficits noted. Patient verbalized understanding of disposition instructions. patient administered narcotics - no. The following High Risk Discharge criteria are identified: None. Discharged to home ambulatory. Condition: stable. Discharge instructions given to patient, Demonstrated understanding of Pt was receptive of discharge instructions/ teaching. CT Study completed. Property sent home with patient. 06:31 Patient left the ED. mv5 Signatures: Dispatcher [employer] EDMS MoralesThien babs Thomas Meade DO DO cs11 Keeley Carson,LEONIDAS LAUREN ko2 Christine Olvera gjb Amadeo Watts, Reg Reg pm4 Sarina Latham,LEONIDAS LAUREN mv5 MTDD
--- NOTE | 2016-11-16 07:58 | REP ---
Clinical: Trauma . Technique: AP, lateral, bilateral oblique views right ankle . Findings: No acute fracture or dislocation. Skeletal structures and joint spaces are intact and normal. Ankle mortise appears stable. No subcutaneous emphysema or radiodense foreign body. Impression: Normal right ankle radiograph series. Signed by El Raines MD 11/16/2016 07:50 A
--- NOTE | 2016-11-18 07:32 | EDDOCDS ---
Nurse's Notes [facility] Name: Vitaliy Alex Age: 46 yrs Sex: Male : 1970 Arrival Date: 11/16/2016 Time: 04:02 Bed 12 Private MD: Diagnosis: Sprain of ankle;Contusion of unspecified part of head Presentation: 11/16 04:05 Presenting complaint: Patient states: thinks he sprained his ankle when he fell and he ko2 also hit head on the ground and thinks lost consciousness. Pt states it happened about an hour and a half ago. Suicide/Homicide risk assessment- the patient denies having any suicidal and/or homicidal ideations and does not present with any other emotional, behavioral or mental health complaints. 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 Transition of care: patient was not received from another setting of care. 04:05 Method Of Arrival: Walkin/Carried/Asstd ko2 04:05 Acuity: KATI Level 3 ko2 06:31 Adult Sepsis Screening: The patient does not have new or worsening altered mentation. mv5 Patient's respiratory rate is less than 22. Systolic blood pressure is greater than 100. Patient has a qSOFA score of 0- Negative Sepsis Screen. Triage Assessment: 04:08 General: Appears in no apparent distress, Behavior is appropriate for age, cooperative. ko2 Pain: Location: right ankle Pain currently is 6 out of 10 on a pain scale. HIV screening NA for this visit Offered previously. Neurological: Level of Consciousness is awake, alert, Oriented to person, place, time, Speech is normal, Pupils are PERRLA. Respiratory: Airway is patent Respiratory effort is even, unlabored. Derm: Skin abrasion to right back of head. Bleeding stopped Skin is pink, warm & dry. Musculoskeletal: Range of motion intact in all extremities. limited in right ankle. Historical: - Allergies: No known drug Allergies; - Home Meds: 1. invega IM monthly 2. Suboxone SL 1 tab twice daily - PMHx: opiod addiction; - PSHx: Appendectomy; Tonsillectomy; right leg surgery; right hand surgery; right knee surgery; - Social history: Smoking status: Patient uses tobacco products, current every day smoker. No barriers to communication noted, The patient speaks fluent [place]er, Speaks appropriately for age. - Family history: Not pertinent. - : The pt / caregiver states he / she is not on anticoagulants. Home medication list is obtained from the patient. - Exposure Risk Screening:: None identified. Screenin:17 Screening information is obtained from the patient. Fall risk: No risks identified. mv5 Recent fall was mechanical in nature. Pt states he slipped on ice.. Assistance ADL's: requires no assistance with activities of daily living. Abuse/DV Screen: The patient / caregiver reports he/she is: not in a situation that causes fear, pain or injury. Nutritional screening: No deficits noted. Advance Directives: There is no active DNR order. home support is adequate. Assessment: 05:17 General: Appears in no apparent distress, Behavior is cooperative, pleasant. Pain: mv5 Location: left parietal area, right parietal area and occipital area Pain currently is 5 out of 10 on a pain scale. Pain does not radiate. Aggravated by Turning head increases headache. Neurological: Level of Consciousness is awake, alert, Oriented to person, place, time, Moves all extremities. Speech is normal, Facial symmetry appears normal, Pupils are PERRLA, CMS intact. Reports possible LOC with fall.. Cardiovascular: Capillary refill < 3 seconds. Respiratory: Airway is patent Respiratory effort is even, unlabored, Respiratory pattern is regular, symmetrical. GI: No deficits noted. : No deficits noted. Derm: Skin is pink, warm & dry. Musculoskeletal: Reports pain in right ankle. Injury Description: pt fell from standing. 06:01 General: Appears in no apparent distress, to be sleeping. Respiratory: Airway is patent mv5 Respiratory effort is even, unlabored, Respiratory pattern is regular, symmetrical. Derm: Skin is pink, warm & dry. 06:29 General: Appears in no apparent distress. General: Pt fitted with right ankle air cast mv5 as ordered.. Vital Signs: 04:10 BP 160 / 99; Pulse 109; Resp 16; Temp 99.6(TE); Pulse Ox 96% ; Weight 63.5 kg; Height 5 ko2 ft. 7 in. (170.18 cm); Pain 5/10; 04:22 BP 156 / 109; Pulse 85; Resp 16; Pulse Ox 97% ; mv5 04:10 Body Mass Index 21.93 (63.50 kg, 170.18 cm) ko2 Vitals: 04:10 Log In Time: November 16, 2016 at 04:02. ko2 ED Course: 04:03 Patient visited by Christine Olvera. gjb 04:03 Patient moved to Waiting gjb 04:07 Triage Initiated ko2 04:20 Patient moved to Radiology babs 04:28 Patient moved to Waiting babs 04:36 Patient name changed from Vitaliy\S\R\S\Isai\S\ to Vitaliy\S\Ward\S\Isai. EDMS 04:36 [facility] [place] into [employer] and attached to record. pm4 05:04 Sarina Latham,LEONIDAS is Primary Nurse. ko2 05:04 Patient moved to 12 ko2 05:13 Patient visited by Sarina Latham RN. mv5 05:17 The patient / caregiver is instructed regarding the plan of care and ED course. Patient mv5 has correct armband on for positive identification. Call light in reach. 05:32 Thomas Meade DO is Attending Physician. cs11 05:32 Patient visited by Thomas Meade DO. cs11 06:05 Patient visited by Sarina Latham RN. mv5 06:29 No IV's were initiated during this patient's visit. No procedures done that require mv5 assistance. 06:32 CT Head Without Contrast Returned. EDMS 08:18 Ankle, Complete Returned. EDMS 09:33 T-Sheet-- Draft Copy was scanned into [employer] and attached to record. klr 11/17 14:14 Radiology Report was scanned into [employer] and attached to record. gb Order Results: Radiology Order: Ankle, Complete Test: Ankle, Complete REASON FOR EXAMINATION: Trauma; Clinical: Trauma .; ; Technique: AP, lateral, bilateral oblique views right ankle .; ; Findings: No acute fracture or dislocation. Skeletal structures and joint; spaces are intact and normal. Ankle mortise appears stable. No subcutaneous; emphysema or radiodense foreign body.; ; Impression:; Normal right ankle radiograph series.; ; ; Signed by; El Raines MD 11/16/2016 07:50 A; Radiology Order: CT Head Without Contrast Test: CT Head Without Contrast REASON FOR EXAMINATION: Trauma; ; CLINICAL HISTORY: Head trauma.; TECHNIQUE: Multiple axial brain CT scan sections were obtained from base to vertex without contrast a; dministration.; COMMENTS:; There is no evidence of skull fracture.; The study shows normal configuration of sella turcica. There are no intra or extra-axial collections.; There is no mass effect or midline shift. There is no evidence of hematoma formation. No hydrocephal; us is present. No abnormal calcifications are noted.; No significant abnormalities are seen either in the posterior fossa or supratentorial compartment.; Mild chronic maxillary and ethmoid sinusitis.; IMPRESSION:; Mild chronic mucosal inflammatory changes of the mesentery sinuses and ethmoid air cells.; No evidence of acute intracranial pathology. No intracranial hemorrhage or skull fracture.; Thank you for your kind referral of this patient.; ; Outcome: 11/16 06:24 Discharge ordered by Provider. cs11 06:29 Discharge Assessment: Patient awake, alert and oriented x 3. No cognitive and/or mv5 functional deficits noted. Patient verbalized understanding of disposition instructions. patient administered narcotics - no. The following High Risk Discharge criteria are identified: None. Discharged to home ambulatory. Condition: stable. Discharge instructions given to patient, Demonstrated understanding of Pt was receptive of discharge instructions/ teaching. CT Study completed. Property sent home with patient. 06:31 Patient left the ED. mv5 Signatures: Dispatcher [employer] EDMS Thien Morales Gloria, Reg Reg gb Thomas Meade, DO DO cs11 Keeley Carson,RN RN [email or web address] Christine Olvera Kathie klr Montondo, Paul, Reg Reg pm4 Sarina LathamRN RN mv5 Chart Complete MTDD
--- NOTE | 2016-11-18 07:32 | EDDOCDS ---
Physician Documentation [facility] Name: Vitaliy Alex Age: 46 yrs Sex: Male : 1970 Arrival Date: 11/16/2016 Time: 04:02 Bed 12 Private MD: Disposition: 11/16/16 06:24 Discharged to Home/Self Care. Impression: Sprain of ankle, Contusion of unspecified part of head. - Condition is Stable. - Medication Reconciliation, Local Pharmacy Hours form. - Follow up: Private Physician; When: Call to arrange an appointment; Reason: Recheck today's complaints. - Problem is new. - Symptoms have improved. Historical: - Allergies: No known drug Allergies; - Home Meds: 1. invega IM monthly 2. Suboxone SL 1 tab twice daily - PMHx: opiod addiction; - PSHx: Appendectomy; Tonsillectomy; right leg surgery; right hand surgery; right knee surgery; - Social history: Smoking status: Patient uses tobacco products, current every day smoker. No barriers to communication noted, The patient speaks fluent Sam[place], Speaks appropriately for age. - Family history: Not pertinent. - : The pt / caregiver states he / she is not on anticoagulants. Home medication list is obtained from the patient. - Exposure Risk Screening:: None identified. Vital Signs: 11/16 04:10 BP 160 / 99; Pulse 109; Resp 16; Temp 99.6(TE); Pulse Ox 96% ; Weight 63.5 kg / 139.99 ko2 lbs; Height 5 ft. 7 in. (170.18 cm); Pain 5/10; 04:22 BP 156 / 109; Pulse 85; Resp 16; Pulse Ox 97% ; mv5 04:10 Body Mass Index 21.93 (63.50 kg, 170.18 cm) ko2 MDM: 04:20 Ankle, Complete Ordered. EDMS 04:36 [place] [place] Agreement was scanned into [employer] and attached to record. pm4 05:33 Financial registration complete. pm4 05:43 CT Head Without Contrast Ordered. EDMS 06:24 Apply Air Cast to Patient. ordered. cs11 09:33 T-Sheet-- Draft Copy was scanned into [employer] and attached to record. klr 11/17 14:14 Radiology Report was scanned into [employer] and attached to record. gb Signatures: Dispatcher [employer] Arlene Kam, Reg Reg gb Thomas Meade, DO cs11 Keeley Carson,RN RN ko2 Verónica Tapia Paul, Reg Reg pm4 Sarina Latham,RN RN mv5 The chart was reviewed and I authenticate all verbal orders and agree with the evaluation and treatment provided.Attachments: 11/16 04:36 [facility] [place] Agreement pm4 09:33 T-Sheet-- Draft Copy klamaris Chart Complete MTDD
--- NOTE | 2016-11-18 07:32 | EDDOCDS ---
Physician Documentation [facility] Name: Vitaliy Alex Age: 46 yrs Sex: Male : 1970 Arrival Date: 11/16/2016 Time: 04:02 Bed 12 Private MD: Disposition: 11/16/16 06:24 Discharged to Home/Self Care. Impression: Sprain of ankle, Contusion of unspecified part of head. - Condition is Stable. - Medication Reconciliation, Local Pharmacy Hours form. - Follow up: Private Physician; When: Call to arrange an appointment; Reason: Recheck today's complaints. - Problem is new. - Symptoms have improved. Historical: - Allergies: No known drug Allergies; - Home Meds: 1. invega IM monthly 2. Suboxone SL 1 tab twice daily - PMHx: opiod addiction; - PSHx: Appendectomy; Tonsillectomy; right leg surgery; right hand surgery; right knee surgery; - Social history: Smoking status: Patient uses tobacco products, current every day smoker. No barriers to communication noted, The patient speaks fluent Vietnamese, Speaks appropriately for age. - Family history: Not pertinent. - : The pt / caregiver states he / she is not on anticoagulants. Home medication list is obtained from the patient. - Exposure Risk Screening:: None identified. Vital Signs: 11/16 04:10 BP 160 / 99; Pulse 109; Resp 16; Temp 99.6(TE); Pulse Ox 96% ; Weight 63.5 kg / 139.99 ko2 lbs; Height 5 ft. 7 in. (170.18 cm); Pain 5/10; 04:22 BP 156 / 109; Pulse 85; Resp 16; Pulse Ox 97% ; mv5 04:10 Body Mass Index 21.93 (63.50 kg, 170.18 cm) ko2 MDM: 04:20 Ankle, Complete Ordered. EDMS 04:36 [facility] [place] Payment Agreement was scanned into [employer] and attached to record. pm4 05:33 Financial registration complete. pm4 05:43 CT Head Without Contrast Ordered. EDMS 06:24 Apply Air Cast to Patient. ordered. cs11 09:33 T-Sheet-- Draft Copy was scanned into [employer] and attached to record. klr 11/17 14:14 Radiology Report was scanned into [employer] and attached to record. gb Signatures: Dispatcher [employer] Arlene Kam, Reg Reg gb Thomas Meade, DO cs11 Keeley Carson,RN RN ko2 Verónica Tapia Paul, Reg Reg pm4 Sarina Latham,RN RN mv5 The chart was reviewed and I authenticate all verbal orders and agree with the evaluation and treatment provided.Attachments: 11/16 04:36 [facility] [place] Payment Agreement pm4 09:33 T-Sheet-- Draft Copy klamaris Chart Complete MTDD
== END 2016-11-16 06:31 | disposition home or self-care (01) ==
LOC: M ED 04:02
DX: S00.93XA Contusion of unspecified part of head, initial encounter (principal); S00.91XA Abrasion of unspecified part of head, initial encounter; S93.401A Sprain of unspecified ligament of right ankle, initial encounter; W00.0XXA Fall on same level due to ice and snow, initial encounter; Y92.410 Unspecified street and highway as the place of occurrence of the external cause; Y93.9 Activity, unspecified; Y99.9 Unspecified external cause status; F11.20 Opioid dependence, uncomplicated; Z72.0 Tobacco use; Z79.899 Other long term (current) drug therapy

== ENCOUNTER 2016-12-08 00:07 | Emergency (ER) | payer OTHER ==
[~2016-12-08] VITALS: Ht 167.6 cm; Wt 68.0 kg
[2016-12-08 00:07] VITALS: BP 148/90
[2016-12-08] MEDS ORDERED: SUBO8MIS SL (22:09)
== END 2016-12-08 02:01 | disposition home or self-care (01) ==
LOC: M ED 01:57
DX: F20.0 Paranoid schizophrenia (principal); F19.10 Other psychoactive substance abuse, uncomplicated; F17.210 Nicotine dependence, cigarettes, uncomplicated; Z91.040 Latex allergy status; Z79.899 Other long term (current) drug therapy; E03.9 Hypothyroidism, unspecified

== ENCOUNTER 2016-12-08 21:56 | Inpatient (IN) | payer OTHER ==
[~2016-12-08] VITALS: Ht 167.6 cm; Wt 65.7 kg
[2016-12-08] MEDS ORDERED: SUBO8MIS SL (22:09)
[2016-12-08 23:18] LABS: MEAN CORPUSCULAR HEMOGLOBIN 31.5 pg (27.0-33.0); MEAN CORPUSCULAR VOLUME 87.5 fl (80.0-96.0); RED CELL DISTRIBUTION WIDTH 13.9 % (11.5-14.5); WHITE BLOOD COUNT 5.4 K/mm3 (4.0-10.0)
[2016-12-08 23:49] LABS: ALBUMIN 4.3 GM/DL (3.2-5.2); ALKALINE PHOSPHATASE 143 U/L (45-117); ALT/SGPT 73 U/L (12-78); ANION GAP 10 MEQ/L (8-16); AST/SGOT 66 U/L (15-37); BILIRUBIN,DIRECT 0.2 MG/DL (0.0-0.2); BLOOD UREA NITROGEN 20 MG/DL (7-18); CALCIUM LEVEL 8.9 MG/DL (8.5-10.1); CARBON DIOXIDE LEVEL 26 MEQ/L (21-32); CHLORIDE LEVEL 102 MEQ/L (98-107); CREATININE FOR GFR 1.04 MG/DL (0.70-1.30); GLOMERULAR FILTRATION RATE > 60.0 (>60); GLUCOSE, FASTING 97 MG/DL (70-105); POTASSIUM SERUM 4.3 MEQ/L (3.5-5.1); SODIUM LEVEL 138 MEQ/L (136-145); TOTAL PROTEIN 7.6 GM/DL (6.4-8.2)
[2016-12-08 23:52] LABS: METHADONE URINE NEGATIVE (NEGATIVE)
[2016-12-09] MEDS ORDERED: MOM 30ML SUSPENSION UDC PO PRN (02:30)
[2016-12-09] MEDS ORDERED: ACETAMINOPHEN TAB 650MG DOSE (2X325MG) PO PRN (02:30)
[2016-12-09] MEDS ORDERED: TETANUS/DIPHTHERIA TOX ADSORB ADULT 0.5ML SYR/VIAL (90714) IM ONE (02:30)
[2016-12-09] MEDS ORDERED: traZODone 50 MG TAB PO PRN (02:30)
[2016-12-09 03:36] VITALS: BP 140/79
[2016-12-09] MEDS: NICOTINE 21MG/24HR 1 EA TRANSDERMAL TD SCH (09:31)
--- NOTE | 2016-12-09 10:56 | HPEPDOC ---
Medical History and Physical Date of Admission Dec 09, 2016 at 00:55 History and Physical PCP: Dr South ATTENDING: Dr. Taj Bower HPI: 46yoM admitted to [facility]S [facility] BEDS AT THE [facility] for Schizoaffective disorder, being medically examined today. The Pt states he has been taking his Suboxone. Pt states he has also been injecting drugs, he states he has used methamphetamine 3 times in the past 2 weeks. He states he cut himself on the left forearm area. Yesterday he punched a wall and has a small abrasion on his right hand however he denies any hand pain. He has no other concerns. He denies chest pain, SOB, abdominal pain, fevers, chills, POLANCO, change in bowel or bladder habits. PMHx: H/O Multiple drug overdose/suicide attempt Polysubstance use Schizoaffective disorder Self-mutilation Tobacco use GERD Nuclear stress test at [facility]- as per patient reported to have been occluded artery based on this test. No prior cardiac catheterization. H/O Hepatitis C PSHX: Appendectomy Knee surgery SOCHX: Resides in: Living in [place] with sister Marital Status: Single Kids: 1 Employment: Unemployed Tobacco use: 1 ppd ETOH: Unobtainable Illicit Drugs: States he is injecting "everything". History of heroin, methamphetamine, cocaine, marijuana. Suboxone program as per Dr South. IV Drug Use: Pt states currently injecting "everything" Tattoos done unprofessionally: Denies FAMHX: Mother: Alive, Children: Alive, well ROS: As noted in HPI otherwise 11 point review of systems reviewed and unremarkable. PE: GEN: 46yoM, appears stated age. Well-nourished, well developed. No acute distress. Alert and oriented x 3. Agitated at time of exam. HEENT: Normocephalic, atraumatic. Pupils are equal, round, and reactive to light. Extraocular movements are intact. No nystagmus appreciated. Sclera are nonicteric. Conjunctiva without injection. Nose midline. Nasal turbinates without bogginess. EACs both patent BL. TMs both visualized and gleason with good cone of light, no bulging or erythema. No facial asymmetry. Moist mucous membranes. Dentition fair. Pharynx pink and moist, no cobblestoning. Neck supple , trachea midline. No lymphadenopathy or thyromegaly appreciated. CHEST: Regular rate and rhythm, +S1, +S2 LUNGS: Clear to auscultation bilaterally. No wheezes, rales, or rhonchi. Breathing appears symmetric and easy. Patient is speaking in full sentences. No accessory muscle use. ABD: Round, soft, non-tender, non-distended. +Bowel sounds throughout. No rebound or guarding. No costovertebral angle tenderness. EXT: Pulses 2+ bilaterally dorsalis pedis and radial. No lower extremity edema appreciated. SKIN: [place], dry, warm. Capillary refill <2sec. injection owusu b/l antecubital areas, no signs of infection. Superficial lacerations noted left forearm. Small abrasion noted to the right hand. There is no pain with palpation of the joints of the right hand or wrist. There is no erythema or edema. NEURO: Alert and oriented x 3. Cranial nerves III-XII are intact. No focal deficits appreciated. EK06/27/16 ST, ST T-wave abnormality, 104 bpm. A&P: 46yoM admitted to COUNTS INCLUDE 234 BEDS AT THE [facility] for Schizoaffective disorder 1. Psych. Plan per Psychiatry. EKG on file. 2. Nicotine dependence. Patch available. 3. Follow up with PCP on discharge. Dr South. 4. Substance use. Per psychiatry. Patient receives Suboxone 8/[address] South. ISTOP accessed reference #[id number] indicating last filled 11/20/16 #56. 5. Injection owusu b/l forearms. No signs of infection. Monitor. 6. Chronic Hepatitis C- Arrange ID at d/c. 7. Elevated LFT. Likely related to Chronic hepatitis C. Will recheck in AM. 8. Superficial lacerations left forearm. Appears to be healing well. Dry dressing if needed. Td received in the ED. 9. Abrasion right hand. States this is from punching a wall. Patient denies any pain. There is no erythema or edema. Patient does not wish to proceed with x- ray at this time. Monitor. 10. History of IVDU. Patient would like to be rescreened for HIV. 11. Staff member present throughout exam, food safety specialist Ed. Vital Signs Vital Signs Label Value Date Time Patient Temperature 96.6 degrees F 12/09/16 0336 Temperature Source Tympanic 3/10/17 0336 Pulse 96 12/09/16335 Respiratory Rate 18 bpm 12/09/16335 Blood Pressure Assessment 140/79 12/09/16335 Bedside Pulse Oximetry 97 % 12/09/16335 Item Value Date Time Oxygen Delivery Method Room Air 12/09/16335 Laboratory Data Labs 24H Laboratory Tests 2 12/08/16 23:06: Acetaminophen Level < 2.0L, Aspartate Amino Transf (AST/SGOT) 66H, Alanine Aminotransferase (ALT/SGPT) 73, Alkaline Phosphatase 143H, Total Bilirubin 1.0, Direct Bilirubin 0.2, Albumin 4.3, Albumin/Globulin Ratio 1.30, Anion Gap 10, Calcium Level 8.9, Ethyl Alcohol Level < 0.003, Glomerular Filtration Rate > 60.0, Salicylates Level 2.3L, Thyroid Stimulating Hormone (TSH) 2.570, Total Protein 7.6 12/08/16 23:20: Urine Amphetamines Screen POSITIVEH, Urine Benzodiazepines Screen NEGATIVE, Urine Opiates Screen POSITIVEH, Urine Barbiturates Screen NEGATIVE, Urine Cannabinoids Screen POSITIVEH, Urine Cocaine Metabolite Screen NEGATIVE, Urine Methadone Screen NEGATIVE, Urine Phencyclidine Screen NEGATIVE CBC/BMP Laboratory Tests 12/08/16 23:06 Red Blood Count 4.63, Mean Corpuscular Volume 87.5, Mean Corpuscular Hemoglobin 31.5, Mean Corpuscular Hemoglobin Concent 36.0, Red Cell Distribution Width 13.9 Home Medications Scheduled Buprenorphine/Naloxone (Suboxone 8-2 mg) 1 Mis Mis 1 MIS SL BID Allergies Coded Allergies: Latex (Verified Allergy, Intermediate, rash, 12/31/12) No Known Drug Allergy (Verified Allergy, Unknown, 10/04/16) Felipa Og Dec 09, 2016 10:56
[2016-12-09 12:12] VITALS: BP 127/84
[2016-12-09 18:00] VITALS: BP 136/77
[2016-12-09] MEDS: BUPRENORPHINE/NALOXONE 8-2MG SUBLINGUAL TABLET(SUBOXONE) SL SCH (22:53)
[2016-12-10 07:10] VITALS: BP 129/77
[2016-12-10 07:36] LABS: ALBUMIN 3.6 GM/DL (3.2-5.2); ALKALINE PHOSPHATASE 117 U/L (45-117); ALT/SGPT 50 U/L (12-78); ANION GAP 8 MEQ/L (8-16); AST/SGOT 29 U/L (15-37); BILIRUBIN,TOTAL 0.6 MG/DL (0.2-1.0); BLOOD UREA NITROGEN 14 MG/DL (7-18); CALCIUM LEVEL 8.8 MG/DL (8.5-10.1); CARBON DIOXIDE LEVEL 27 MEQ/L (21-32); CHLORIDE LEVEL 105 MEQ/L (98-107); CREATININE FOR GFR 0.85 MG/DL (0.70-1.30); GLOMERULAR FILTRATION RATE > 60.0 (>60); GLUCOSE, FASTING 90 MG/DL (70-105); POTASSIUM SERUM 4.7 MEQ/L (3.5-5.1); SODIUM LEVEL 140 MEQ/L (136-145); TOTAL PROTEIN 6.6 GM/DL (6.4-8.2)
[2016-12-10] MEDS: NICOTINE 21MG/24HR 1 EA TRANSDERMAL TD SCH (09:32)
[2016-12-10] MEDS: BUPRENORPHINE/NALOXONE 8-2MG SUBLINGUAL TABLET(SUBOXONE) SL SCH ×2 (09:32→15:33)
[2016-12-10 11:31] VITALS: BP 121/67
[2016-12-10 18:00] VITALS: BP 109/62
[2016-12-10] MEDS: OLANZapine 5 MG TAB PO PRN (18:07)
[2016-12-10] MEDS: clonazePAM 0.5 MG TAB PO SCH (20:51)
[2016-12-11 07:42] VITALS: BP 134/83
[2016-12-11 08:09] LABS: CONTROL LINE INT CTR LINE PRESENT; HIV SCRN NEGATIVE (NEGATIVE); HIV SCRN1 NEGATIVE (NEGATIVE)
[2016-12-11] MEDS: clonazePAM 0.5 MG TAB PO SCH ×2 (09:00→21:00)
[2016-12-11] MEDS: BUPRENORPHINE/NALOXONE 8-2MG SUBLINGUAL TABLET(SUBOXONE) SL SCH ×2 (09:47→14:34)
[2016-12-11] MEDS: NICOTINE 21MG/24HR 1 EA TRANSDERMAL TD SCH (09:48)
[2016-12-11 18:00] VITALS: BP 132/89
[2016-12-11] MEDS: QUEtiapine FUMARATE 100 MG TAB PO SCH (21:33)
[2016-12-12 06:19] VITALS: BP 123/81
[2016-12-12] MEDS: clonazePAM 0.5 MG TAB PO SCH ×2 (09:00→21:00)
[2016-12-12] MEDS: NICOTINE 21MG/24HR 1 EA TRANSDERMAL TD SCH (09:10)
[2016-12-12] MEDS: BUPRENORPHINE/NALOXONE 8-2MG SUBLINGUAL TABLET(SUBOXONE) SL SCH ×2 (09:10→15:28)
--- NOTE | 2016-12-12 17:36 | IPNPDOC ---
[facility] Progress Note Progress Note DATE OF SERVICE: 12/12/16 HISTORY: The patient was attempted being met with today. However he yelled at this provider scaring at him to leave him alone. He afterwards appeared very irate and went to the nurse's station and the elder thumb for some time. He appeared to be very upset that he was being awoken and that he "couldn't get any Fcking sleep". He has been noted by the nurses to be generally irritable but surprisingly amenable when he has offered his Suboxone. He generally has been not engage in treatment and does not attend groups. He has a history of coming to the inpatient psychiatric deleon and gaining very little from his admissions. VITAL SIGNS: See below. NEW TEST RESULTS: None CURRENT MEDICATIONS: See below. MENTAL STATUS EXAMINATION: Patient is a 46-year old male, who is hostile and yelling, short statured and disheveled. Speech: Is loud Language skills not available Thought processes including: Unable to determine Thought content: Unable to determine Abstract reasoning, and computation: Unable to be Determined. Description of associations: Unable to be determined. Description of abnormal or psychotic thoughts: Unable to be determined. Judgment: Poor Insight: Poor Orientation unknown Recent and remote memory: Unknown Attention span and concentration: Unknown Language: Unknown Fund of knowledge: Unknown Mood: "Closed the door". Affect: Hostile and reactive. DIAGNOSES: 1. Unspecified depression Rule out substance-induced 2. Unspecified anxiety disorder rule out substance-induced 3. Unspecified psychotic disorder Rule out substance-induced 4. Opioid use disorder, severe, on maintenance therapy 5. Benzodiazepine use disorder, severe 6. Tobacco use disorder, severe 7. Stimulant use disorder, severe ASSESSMENT: A 46-year-old man with multiple substance use disorders presents with depression, anxiety and paranoia that appeared to be likely induced from his multiple substance uses. He is currently on maintenance therapy with buprenorphine and is currently under the care of Dr. Montaño. He appears to have little interest in engaging in the therapeutic milieu and has gained previously little from his inpatient psychiatric stays MANAGEMENT PLAN: 1. Continue home buprenorphine, Seroquel and clonazepam 2. Continued treatment as the patient still demonstrating poor judgment and aggression. He'll need of further inpatient stay to plan for a stable and safe discharge TIME SPENT: 10 minutes. Vital Signs Vital Signs Date Time Temp Pulse Resp B/P Pulse Ox O2 Delivery O2 Flow Rate FiO2 12/12/16 06:19 96.6 107 20 123/81 12/09/16 03:36 97 Room Air Current Medications Current Medications Acetaminophen (Tylenol Tab) 650 mg Q6HP PRN PO HEADACHE or DISCOMFORT; Start at 02:30; Stop 01/08/17 at 02:29 Al Hydrox/Mg Hydrox/Simethicone (Mylanta) 30 ml Q4HP PRN PO HEARTBURN/ INDIGESTION; Start 12/09/16 at 02:30; Stop 01/08/17 at 02:29 Buprenorphine/ Naloxone (Suboxone 8/2mg) 1 tab BID SL Last administered on 12/10 09:32; Start 12/09/16 at 21:00; Stop 12/10/16 at 14:19; Status DC Buprenorphine/ Naloxone (Suboxone 8/2mg) 1 tab BID@09,15 SL Last administered on 12/12/16 15:28; Start 12/10/16 at 15:00; Stop 12/17/16 at 14:59 Clonazepam (KlonoPIN) 0.25 mg BID PO Last administered on 12/10/16 20:51; Start 12/10/16 at 21:00; Stop 12/17/16 at 20:59 Home Med (Med Rec Complete!) ASDIRECTED XX ; Start 12/09/16 at 03:00; Stop 07/18 at 03:00; Status DC Magnesium Hydroxide (Milk Of Magnesia) 30 ml DAILYPRN PRN PO CONSTIPATION; Start 12/09/16 at 02:30; Stop 01/08/17 at 02:29 Nicotine (Nicoderm Cq 21mg) 1 patch DAILY TD Last administered on 12/12/16 09: 10; Start 12/09/16 at 09:00; Stop 01/08/17 at 08:59 Olanzapine (ZyPREXA) 5 mg Q4HP PRN PO AGITATION Last administered on 12/10/16 18:07; Start 12/09/16 at 03:15; Stop 01/08/17 at 03:14 Quetiapine Fumarate (SEROquel) 100 mg QHS PO Last administered on 12/11/16 21: 33; Start 12/11/16 at 21:00; Stop 01/10/17 at 20:59 Trazodone HCl (Desyrel) 50 mg QHSP PRN PO INSOMNIA; Start 12/09/16 at 02:30; Stop 12/11/16 at 20:45; Status DC Allergies Coded Allergies: Latex (Verified Allergy, Intermediate, rash, 12/31/12) No Known Drug Allergy (Verified Allergy, Unknown, 10/04/16) GME ATTESTATION My preceptor for this patient encounter was fully available. As needed, all aspects of the patient interview, examination, medical decision making process, and medical care plan development were reviewed and approved by the preceptor. Preceptor is aware and concurs with the plan as stated in the body of this note and will attest to such by his/her cosignature. TIBURCIO WEAVER DO Dec 12, 2016 17:36
[2016-12-12] MEDS: QUEtiapine FUMARATE 100 MG TAB PO SCH (21:24)
[2016-12-13 06:00] VITALS: BP 125/66
[2016-12-13] MEDS: clonazePAM 0.5 MG TAB PO SCH ×2 (09:00→20:25)
[2016-12-13] MEDS: NICOTINE 21MG/24HR 1 EA TRANSDERMAL TD SCH (09:42)
[2016-12-13] MEDS: BUPRENORPHINE/NALOXONE 8-2MG SUBLINGUAL TABLET(SUBOXONE) SL SCH ×2 (09:42→14:47)
[2016-12-13] MEDS: MAALOX 30 ML SUSP *UDC PO PRN (10:54)
[2016-12-13] MEDS: OLANZapine 5 MG TAB PO PRN ×2 (13:25→20:24)
--- NOTE | 2016-12-13 17:20 | IPNPDOC ---
[facility] Progress Note Progress Note DATE OF SERVICE: 12/13/16 HISTORY: . VITAL SIGNS: See below. NEW TEST RESULTS: With today shortly after group therapy. He spent the majority of the group therapy discussing difficult issues of anger with his family. He discussed feeling paranoid about their intentions with him. He further went on to describes that he had difficulty with anger as a provoking factor for his suicide attempt. Group was helpful and helped him process the difficult information. He has been much more amenable and less agitated today. Nursing staff noted him to be more compliant and attending groups more frequently. CURRENT MEDICATIONS: See below. MENTAL STATUS EXAMINATION: Patient is a 46-year old male, who is pleasant, cooperative and well kept,. Speech: Is normal in rate, volume, and articulation, and is coherent and spontaneous Language skills are intact. Thought processes including: Goal-directed. Thought content: Logical and linear. Abstract reasoning, and computation: Intact. Description of associations: Somewhat loose. Description of abnormal or psychotic thoughts: Denies any overt auditory or visual hallucinations. Denies any suicidal or homicidal ideation does not appear to be responding to internal stimuli.discussed during group difficulty with paranoid thoughts. Judgment: Fair. Insight: Fair. Orientation to time, place and person. Recent and remote memory: Immediate, short-term and long-term memory appears grossly intact. Attention span and concentration: Good. Language: Normal. Fund of knowledge: Adequate. Mood: "Fine". Affect: Euthymic with a thomas range. DIAGNOSES: 1. Unspecified depressive disorder. 2. Polysubstance abuse. 3. Unspecified trauma/stress-related disorder. ASSESSMENT: A 46-year-old man with a long history of addiction whom during group described difficulties with opioids going into his white washer. He presents depressed and suicidal after a suicide attempt. His paranoid ideation appears to be ego-dystonic and he attributes to his methamphetamine use prior. MANAGEMENT PLAN: 1. Continue home Seroquel, clonazepam and Suboxone. 2. Continue inpatient stay and she will need further time in order to plan a safe discharge and still struggles with paranoid thoughts requiring further inpatient stay TIME SPENT: 20 minutes. Vital Signs Vital Signs Date Time Temp Pulse Resp B/P Pulse Ox O2 Delivery O2 Flow Rate FiO2 12/13/16 06:00 96.3 97 16 125/66 12/09/16 03:36 97 Room Air Current Medications Current Medications Acetaminophen (Tylenol Tab) 650 mg Q6HP PRN PO HEADACHE or DISCOMFORT; Start at 02:30; Stop 01/08/17 at 02:29 Al Hydrox/Mg Hydrox/Simethicone (Mylanta) 30 ml Q4HP PRN PO HEARTBURN/ INDIGESTION Last administered on 12/13/16 10:54; Start 12/09/16 at 02:30; Stop 01/08/17 at 02:29 Buprenorphine/ Naloxone (Suboxone 8/2mg) 1 tab BID SL Last administered on 12/10 09:32; Start 12/09/16 at 21:00; Stop 12/10/16 at 14:19; Status DC Buprenorphine/ Naloxone (Suboxone 8/2mg) 1 tab BID@ SL Last administered on 12/13/16 14:47; Start 12/10/16 at 15:00; Stop 12/17/16 at 14:59 Clonazepam (KlonoPIN) 0.25 mg BID PO Last administered on 12/10/16 20:51; Start 12/10/16 at 21:00; Stop 12/17/16 at 20:59 Home Med (Med Rec Complete!) ASDIRECTED XX ; Start 12/09/16 at 03:00; Stop 07/18 at 03:00; Status DC Magnesium Hydroxide (Milk Of Magnesia) 30 ml DAILYPRN PRN PO CONSTIPATION; Start 12/09/16 at 02:30; Stop 01/08/17 at 02:29 Nicotine (Nicoderm Cq 21mg) 1 patch DAILY TD Last administered on 12/13/16 09: 42; Start 12/09/16 at 09:00; Stop 01/08/17 at 08:59 Olanzapine (ZyPREXA) 5 mg Q4HP PRN PO AGITATION Last administered on 12/13/16 13:25; Start 12/09/16 at 03:15; Stop 01/08/17 at 03:14 Quetiapine Fumarate (SEROquel) 100 mg QHS PO Last administered on 12/12/16 21: 24; Start 12/11/16 at 21:00; Stop 01/10/17 at 20:59 Trazodone HCl (Desyrel) 50 mg QHSP PRN PO INSOMNIA; Start 12/09/16 at 02:30; Stop 12/11/16 at 20:45; Status DC Allergies Coded Allergies: Latex (Verified Allergy, Intermediate, rash, 12/31/12) No Known Drug Allergy (Verified Allergy, Unknown, 10/04/16) GME ATTESTATION My preceptor for this patient encounter was fully available. As needed, all aspects of the patient interview, examination, medical decision making process, and medical care plan development were reviewed and approved by the preceptor. Preceptor is aware and concurs with the plan as stated in the body of this note and will attest to such by his/her cosignature. TIBURCIO WEAVER DO Dec 13, 2016 17:20
[2016-12-13 18:00] VITALS: BP 143/90
[2016-12-13] MEDS: QUEtiapine FUMARATE 100 MG TAB PO SCH (20:24)
[2016-12-14 06:00] VITALS: BP 115/80
[2016-12-14] MEDS: NICOTINE 21MG/24HR 1 EA TRANSDERMAL TD SCH (09:28)
[2016-12-14] MEDS: BUPRENORPHINE/NALOXONE 8-2MG SUBLINGUAL TABLET(SUBOXONE) SL SCH ×2 (09:28→15:18)
[2016-12-14] MEDS: clonazePAM 0.5 MG TAB PO SCH ×2 (09:29→21:00)
[2016-12-14] MEDS: OLANZapine 5 MG TAB PO PRN ×3 (09:30→21:07)
[2016-12-14] MEDS: QUEtiapine FUMARATE 100 MG TAB PO SCH (21:07)
[2016-12-15 08:30] VITALS: BP 137/96
[2016-12-15] MEDS: clonazePAM 0.5 MG TAB PO SCH ×2 (08:31→20:03)
[2016-12-15] MEDS: BUPRENORPHINE/NALOXONE 8-2MG SUBLINGUAL TABLET(SUBOXONE) SL SCH ×2 (08:31→16:10)
[2016-12-15] MEDS: NICOTINE 21MG/24HR 1 EA TRANSDERMAL TD SCH (08:31)
[2016-12-15] MEDS: MAALOX 30 ML SUSP *UDC PO PRN ×2 (10:37→17:01)
[2016-12-15] MEDS: OLANZapine 5 MG TAB PO PRN ×2 (16:10→20:17)
[2016-12-15 18:00] VITALS: BP 130/95
--- NOTE | 2016-12-15 18:35 | IPNPDOC ---
[facility] Progress Note Progress Note DATE OF SERVICE: 12/15/16 HISTORY: The patient is met with today. He described that he was feeling better and was somewhat dismayed at his thoughts that his family have been tempting to frighten him into not using methamphetamine. He described that he still struggled somewhat with the paranoid thoughts but that they were fairly ego- dystonic. He describes that he was interesting going home and was amenable to whenever the treatment team felt he was ready to go home. He made a major breakthrough and decided that he wished to have one-on-one psychotherapy as an outpatient as he felt the process group have been helpful and he wished to continue. He has been noted on the deleon to be much more amenable and less agitated. Much of the nursing staff were familiar with him feel that he is at his baseline for his presentations. Otherwise he has been attempting to attend group fairly regularly. VITAL SIGNS: See below. NEW TEST RESULTS: None. CURRENT MEDICATIONS: See below. MENTAL STATUS EXAMINATION: Patient is a 46-year old male, who is cooperative, pleasant and with good hygiene,. Speech: Is flight of ideas, fluid and spontaneous. Language skills are intact Thought processes including: Linear and coherent. Thought content: Some perseveration on paranoid thoughts about his family. Abstract reasoning, and computation: Intact. Description of associations: Mildly loose. Description of abnormal or psychotic thoughts: Denies any suicidal, homicidal ideation. Denies any auditory or visual hallucinations. Does not appear to be responding to internal stimuli. Judgment: Fair. Insight: Fair. Orientation to alert and oriented 3. Recent and remote memory: Grossly intact. Attention span and concentration: Good. Language: Normal Fund of knowledge: Good Mood: "better". Affect: Euthymic with a full range. DIAGNOSES: 1. Unspecified psychosis. 2. Unspecified depressive disorder. 3. Polysubstance abuse ASSESSMENT: A 46-year-old man with a history of multiple substance use disorders who presents after using methamphetamine in a paranoid and psychotic state with relatively intact insight. He has done well on the deleon and appears to have resolved most of his paranoia and is amenable to outpatient psychotherapy. MANAGEMENT PLAN: 1. Continue patient's home Suboxone, clonazepam and Seroquel. 2. Plan for discharge tomorrow with outpatient psychotherapy arranged and to return to Dr. Montaño TIME SPENT: 15 minutes. Vital Signs Vital Signs Date Time Temp Pulse Resp B/P Pulse Ox O2 Delivery O2 Flow Rate FiO2 12/15/16 08:30 98.6 102 16 137/96 12/09/16 03:36 97 Room Air Current Medications Current Medications Acetaminophen (Tylenol Tab) 650 mg Q6HP PRN PO HEADACHE or DISCOMFORT; Start at 02:30; Stop 01/08/17 at 02:29 Al Hydrox/Mg Hydrox/Simethicone (Mylanta) 30 ml Q4HP PRN PO HEARTBURN/ INDIGESTION Last administered on 12/15/16 17:01; Start 12/09/16 at 02:30; Stop 01/08/17 at 02:29 Buprenorphine/ Naloxone (Suboxone 8/2mg) 1 tab BID SL Last administered on 12/10 09:32; Start 12/09/16 at 21:00; Stop 12/10/16 at 14:19; Status DC Buprenorphine/ Naloxone (Suboxone 8/2mg) 1 tab BID@,15 SL Last administered on 12/15/16 16:10; Start 12/10/16 at 15:00; Stop 12/17/16 at 14:59 Clonazepam (KlonoPIN) 0.25 mg BID PO Last administered on 12/15/16 08:31; Start 12/10/16 at 21:00; Stop 12/17/16 at 20:59 Home Med (Med Rec Complete!) ASDIRECTED XX ; Start 12/09/16 at 03:00; Stop 07/18 at 03:00; Status DC Magnesium Hydroxide (Milk Of Magnesia) 30 ml DAILYPRN PRN PO CONSTIPATION; Start 12/09/16 at 02:30; Stop 01/08/17 at 02:29 Nicotine (Nicoderm Cq 21mg) 1 patch DAILY TD Last administered on 12/15/16 08: 31; Start 12/09/16 at 09:00; Stop 01/08/17 at 08:59 Olanzapine (ZyPREXA) 5 mg Q4HP PRN PO AGITATION Last administered on 12/15/16 16:10; Start 12/09/16 at 03:15; Stop 01/08/17 at 03:14 Quetiapine Fumarate (SEROquel) 100 mg QHS PO Last administered on 3/15/17at 21: 07; Start 12/11/16 at 21:00; Stop 01/10/17 at 20:59 Trazodone HCl (Desyrel) 50 mg QHSP PRN PO INSOMNIA; Start 12/09/16 at 02:30; Stop 12/11/16 at 20:45; Status DC Allergies Coded Allergies: Latex (Verified Allergy, Intermediate, rash, 12/31/12) No Known Drug Allergy (Verified Allergy, Unknown, 10/04/16) GME ATTESTATION My preceptor for this patient encounter was fully available. As needed, all aspects of the patient interview, examination, medical decision making process, and medical care plan development were reviewed and approved by the preceptor. Preceptor is aware and concurs with the plan as stated in the body of this note and will attest to such by his/her cosignature. TIBURCIO WEAVER DO Dec 15, 2016 18:35
[2016-12-15] MEDS: QUEtiapine FUMARATE 100 MG TAB PO SCH (20:04)
[2016-12-16 06:29] VITALS: BP 146/98
[2016-12-16] MEDS: NICOTINE 21MG/24HR 1 EA TRANSDERMAL TD SCH (09:16)
[2016-12-16] MEDS: BUPRENORPHINE/NALOXONE 8-2MG SUBLINGUAL TABLET(SUBOXONE) SL SCH ×2 (09:17→15:00)
[2016-12-16] MEDS: clonazePAM 0.5 MG TAB PO SCH (09:17)
[2016-12-16] MEDS: OLANZapine 5 MG TAB PO PRN ×2 (09:18→14:14)
[2016-12-16] MEDS: MAALOX 30 ML SUSP *UDC PO PRN (11:09)
[2016-12-16] MEDS ORDERED: CLON0.5T PO (11:26)
[2016-12-16] MEDS ORDERED: QUET1TAB8 PO ×2 (11:26→14:53)
[2016-12-16] MEDS ORDERED: BUPR1SUB5 SL ×2 (11:26→14:42)
[2016-12-16] MEDS ORDERED: OLAN5TAB PO ×2 (11:26→14:53)
[2016-12-16] MEDS ORDERED: SUBO8MIS SL ×2 (14:53→14:59)
--- NOTE | 2016-12-16 17:15 | DS.PDOC ---
[facility] Discharge Summary Discharge Summary DATE OF ADMISSION: Dec 09, 2016 at 00:55 DATE OF DISCHARGE: Dec 16, 2016 at 15:00 DISCHARGE DIAGNOSES: 1. Unspecified psychotic disorder. 2. Unspecified depressive disorder. 3. Polysubstance abuse, severe, in controlled setting. REASON FOR ADMISSION: The patient was admitted for suicidal ideation and safety concerns. Patient has a long history of substance abuse and presented additionally with paranoia about the intentions of his family during his reported attempt to hang himself. There is concerns that he had been using methamphetamine and that this had precipitated his acute paranoid state. CONSULTANTS INVOLVED: None TREATMENT AND PROGRESS ON THE UNIT : The patient was admitted and restarted on his home medications of Suboxone, clonazepam and Seroquel. He appeared to stabilize someone in the therapeutic milieu but was noted to be somewhat paranoid and agitated. He remained reclusive to his room for quite some time as he appeared to be withdrawing from methamphetamine and fairly tired. He began attending groups and was more bright and amenable to staff interventions. After some therapeutic processing and group therapy he was interested in engaging in outpatient psychotherapy. He rejected any suicidal ideation and his paranoid ideation appeared to improve significantly with the resumption of his medications and the separation from the provoking cause. DISCHARGE ASSESSMENT: 46-year-old man with a long history of polysubstance abuse who presented in a paranoid state with suicidal ideation of a reported attempt to hang himself. After resumption of his home medications he appeared to do quite well. He became more stable and was allowed to do some emotional processing during group and became interested in pursuing outpatient psychotherapy. MENTAL STATUS EXAMINATION ON DISCHARGE: Patient is a 46-year old male, who is pleasant, cooperative with good hygiene. Speech is spontaneous and fluid. Language skills are intact. Thought processes including: Linear logical. Thought content: Some anxiety about returning home. Abstract reasoning, and computation: Intact. Description of associations: Intact. Description of abnormal or psychotic thoughts: Denies any suicidal or homicidal ideation. Denies auditory or visual hallucinations. Does not appear to be responding to internal stimuli. Does not endorse any bizarre paranoid ideation today. Judgment: Fair. Insight: Fair. Orientation to alert and oriented 3. Recent and remote memory: Grossly intact. Attention span and concentration: Good. Language: Normal. Fund of knowledge: Adequate. Mood: "Great". Affect: Euthymic with a full range. MEDICATIONS ON DISCHARGE: -Suboxone one film twice daily for opioid maintenance therapy. -Clonazepam for anxiety. -Seroquel for anger. PLAN/FOLLOWUP ARRANGEMENTS: The patient was scheduled for return follow-up with his outpatient addiction R Dr. Montaño. She was set up with outpatient psychotherapy as he had requested it. He stated that he would make his appointment with Dr. Montaño by himself as he traditionally did so in the past. The amount of time spent in the coordination of care for this patient was approximately 30 minutes. Vital Signs Vital Sign - Last 24 Hours 12/15/16 12/16/16 18:00 06:29 Temp 99.2 98.5 Pulse 97 112 Resp 18 18 B/P 130/95 146/98 Medications Scheduled Buprenorphine/Naloxone (Suboxone 8-2 mg) 1 Mis Mis #10 1 MIS SL BID opioid treatment Clonazepam (Clonazepam) 0.5 Mg Tab #7 0.25 MG PO BID anxiety Scheduled PRN Olanzapine (Olanzapine) 5 Mg Tab #15 5 MG PO Q4HP PRN PRN AGITATION Allergies Coded Allergies: Latex (Verified Allergy, Intermediate, rash, 12/31/12) No Known Drug Allergy (Verified Allergy, Unknown, 10/04/16) GME ATTESTATION My preceptor for this patient encounter was fully available. As needed, all aspects of the patient interview, examination, medical decision making process, and medical care plan development were reviewed and approved by the preceptor. Preceptor is aware and concurs with the plan as stated in the body of this note and will attest to such by his/her cosignature. TIBURCIO WEAVER DO Dec 16, 2016 17:15 TIBURCIO WEAVER DO Dec 16, 2016 17:15
== END 2016-12-16 15:00 | disposition home or self-care (01) | DRG 754 ==
LOC: M ED 23:01 → M ED INP 12-09 00:55 → M PSY 12-09 03:40
PROVIDERS: ADMIT Psychiatry & Neurology Psychiatry; ATTEND Psychiatry & Neurology Psychiatry
DX: F32.9 Major depressive disorder, single episode, unspecified (principal); F11.10 Opioid abuse, uncomplicated; F17.200 Nicotine dependence, unspecified, uncomplicated; K21.9 Gastro-esophageal reflux disease without esophagitis; F15.10 Other stimulant abuse, uncomplicated; B18.2 Chronic viral hepatitis C; Z79.899 Other long term (current) drug therapy; Z91.040 Latex allergy status

== ENCOUNTER 2017-01-15 11:54 | Inpatient (IN) | payer OTHER ==
[~2017-01-15] VITALS: Ht 167.6 cm; Wt 65.7 kg
[~2017-01-15 11:54] MED LIST changes: +CLON0.5T PO; +ENALAPRIL MALEATE 5 MG TAB PO SCH; +OLAN5TAB PO
[2017-01-15] MEDS ORDERED: VASO5TAB11 PO (12:11)
[2017-01-15] MEDS ORDERED: ATEN25TA PO (12:11)
[2017-01-15 12:50] LABS: MEAN CORPUSCULAR HEMOGLOBIN 31.4 pg (27.0-33.0); MEAN CORPUSCULAR HGB CONC 34.7 g/dl (32.0-36.5); MEAN CORPUSCULAR VOLUME 90.6 fl (80.0-96.0); RED CELL DISTRIBUTION WIDTH 13.9 % (11.5-14.5); WHITE BLOOD COUNT 6.6 K/mm3 (4.0-10.0)
[2017-01-15 13:36] LABS: ALBUMIN 4.1 GM/DL (3.2-5.2); ALBUMIN/GLOBULIN RATIO 1.21 (1.00-1.93); ALKALINE PHOSPHATASE 128 U/L (45-117); ALT/SGPT 33 U/L (12-78); ANION GAP 8 MEQ/L (8-16); AST/SGOT 26 U/L (15-37); BILIRUBIN,DIRECT 0.1 MG/DL (0.0-0.2); BILIRUBIN,TOTAL 0.7 MG/DL (0.2-1.0); BLOOD UREA NITROGEN 22 MG/DL (7-18); CALCIUM LEVEL 9.1 MG/DL (8.5-10.1); CARBON DIOXIDE LEVEL 25 MEQ/L (21-32); CHLORIDE LEVEL 107 MEQ/L (98-107); GLOMERULAR FILTRATION RATE > 60.0 (>60); GLUCOSE, FASTING 101 MG/DL (70-105); POTASSIUM SERUM 4.2 MEQ/L (3.5-5.1); SODIUM LEVEL 140 MEQ/L (136-145); TOTAL PROTEIN 7.5 GM/DL (6.4-8.2)
[2017-01-15] MEDS ORDERED: HALOPERIDOL 5 MG/ML VIAL (J1630) IM ONE (13:45)
[2017-01-15] MEDS ORDERED: POTASSIUM CHLORIDE 10 MEQ SR TABLET PO ONE (13:45)
[2017-01-15] MEDS ORDERED: diphenhydrAMINE INJ 50MG/ML VIAL (J1200) IM ONE (13:45)
[2017-01-15] MEDS ORDERED: LORazepam 2 MG/ML VIAL (J2060) IM ONE (13:45)
[2017-01-15 15:20] LABS: METHADONE URINE NEGATIVE (NEGATIVE)
[2017-01-15] MEDS ORDERED: SUBO8MIS SL (17:51)
[2017-01-15 18:29] VITALS: BP 165/79
[2017-01-15] MEDS ORDERED: ACETAMINOPHEN TAB 650MG DOSE (2X325MG) PO PRN (18:30)
[2017-01-15] MEDS ORDERED: MAALOX 30 ML SUSP *UDC PO PRN (18:30)
[2017-01-15] MEDS ORDERED: MOM 30ML SUSPENSION UDC PO PRN (18:30)
[2017-01-15] MEDS: NICOTINE 21MG/24HR 1 EA TRANSDERMAL TD SCH (18:59)
[2017-01-15] MEDS: clonazePAM 0.5 MG TAB PO SCH (21:10)
[2017-01-15] MEDS: BUPRENORPHINE/NALOXONE 8-2MG SUBLINGUAL TABLET(SUBOXONE) SL SCH (21:10)
[2017-01-15] MEDS: traZODone 50 MG TAB PO PRN (21:10)
[2017-01-16] MEDS: OLANZapine 5 MG TAB PO PRN ×2 (00:12→20:22)
[2017-01-16 06:29] VITALS: BP 113/71
[2017-01-16] MEDS: ENALAPRIL MALEATE 10 MG TAB PO SCH (09:00)
[2017-01-16] MEDS: NICOTINE 21MG/24HR 1 EA TRANSDERMAL TD SCH (09:21)
[2017-01-16] MEDS: clonazePAM 0.5 MG TAB PO SCH ×2 (09:21→20:22)
[2017-01-16] MEDS: BUPRENORPHINE/NALOXONE 8-2MG SUBLINGUAL TABLET(SUBOXONE) SL SCH ×2 (09:21→20:22)
[2017-01-16 18:00] VITALS: BP 100/60
[2017-01-16] MEDS: traZODone 50 MG TAB PO PRN (20:22)
--- NOTE | 2017-01-16 20:47 | MHHPE ---
DATE OF ADMISSION: 01/15/2017 This patient presented to the emergency room stating he was seeing members of a gang in his home and was able to hide when phoned found the police. Patient appeared "paranoid and restless." Established history of "psychotic disorder." His urinary screen was positive for methamphetamines, cannabis, and opiates, although he minimized his substance use. Throughout the interview he insisted he was being persecuted by people, and it was an ongoing issue for the last 6 years. He has a reported history of being on Invega Sustenna, but he stopped it a few months ago. He stated, "I am not schizophrenic. I know I'm not." He admitted to noncompliance with all treatment, including psychotherapy and hypertension. He has superficial cuts on his posterior left forearm, which he inflicted 2 days ago. He believes he has no psychiatric illness, but he needs help with his situation. He denies having any legal problems or housing issues aside from his fear of his own home. I met with patient this morning. This 46-year-old male states, "I am here for delusions. I was seeing and hearing voices. At the time I was on methamphetamines and heroin. I had some the day of admission. I had fallen out with family members, and therefore I went back to using." He [place] [address] with his sister, who is 55. EDUCATIONAL HISTORY: Patient says he has some college. 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 DRUG USE: Patient states he has used heroin for 28 years. He is currently using Suboxone prescribed by Dr. South. He states he was put back on Suboxide by Dr. South. He called Dr. Souht on Monday personally, saying he has Dr. South' phone number. He started using heroin 3 weeks ago and stopped Suboxone and was shooting heroin and using methamphetamine. Methamphetamine, in his opinion, helps him stay awake and to write. The patient states he is planning to go to [facility] on January 23. He states his medications will not be ready until then. ALCOHOL HISTORY: Negative. Patient states he cut his arms when he was on heroin and amphetamines, because amphetamines make him depressed. He has been and has one 21-year-old child. FINANCIAL HISTORY: He on supplemental security income (SSI) but plans to go back to work. NEUROLOGICAL HISTORY: Positive for serious head injury when he was young with an epidural hematoma. MEDICAL HISTORY: He has had heart difficulties and high blood pressure. He smokes. He denies hallucinations, delusions, obsessions, compulsion, and phobias. His speech is normal. No disturbance of thought process. No loose associations. No hallucinations or delusions expressed. Judgment and insight are fair. He is fully oriented. Recent and remote memory are intact. Attention and concentration intact. Full fund of knowledge. Mood is good. Affect is neutral. DIAGNOSIS: Polysubstance abuse dependent and abuse. PLAN: Will refer patient back to Suboxone program with Dr. South, and patient planning to go to [facility]
--- NOTE | 2017-01-16 21:57 | HPE ---
DATE OF ADMISSION: 01/15/2017 HISTORY OF THE PRESENT ILLNESS: Please refer to psychiatric history and evaluation for further details on this admission. This examination and history is intended for medical issues which may need treatment, followup, or consult on this 46-year-old male. ALLERGIES: LATEX. PAST MEDICAL HISTORY: Multiple drug overdoses. History of suicide attempts. Polysubstance abuse. Schizoaffective disorder. History of self-mutilation. Tobacco use. Gastroesophageal reflux disease (GERD). He has had a previous nuclear stress test, he states, at [facility]. He reports he has had occluded artery. He has had no cardiac catheterization. History of hepatitis C. PAST SURGICAL HISTORY: Appendectomy. Right knee surgery. Right thigh surgery. LABORATORY STUDIES: CBC was normal. Electrolytes were normal. BUN was 22, creatinine was 1.0. AST, ALT were normal. Alkaline phosphatase was slightly high at 128. Urine was positive for opiates, positive for amphetamines, positive for cannabinoids. HOME MEDICATIONS: - Suboxone 8-2 one by mouth twice a day - clonazepam 0.25 mg by mouth twice a day - olanzapine 5 mg by mouth every 4 hours as needed - Seroquel 100 mg by mouth nightly The patient resides in [place]. He is single. He states he smokes approximately one pack of cigarettes per day. Ethyl alcohol (ETOH): He states he does not drink. Illicit drug use: IV heroin, methamphetamine. He has done cocaine in the past. FAMILY HISTORY: Noncontributory. REVIEW OF SYSTEMS: Ten-system review was done and was essentially unremarkable. He had no specific complaints. Requested retesting hepatitis C genotype numbers and viral load. Will order that. OBJECTIVE: Height: 66 inches. Weight: 65.7 kg. Body mass index (BMI) 23.4. The patient is alert and oriented times three. Pupils are equal and reactive to light. Extraocular movements intact. Cornea and sclerae clear. Conjunctivae is normal. No facial asymmetry. Pharynx: Tongue and gums pink and moist. Tongue is midline. Neck is supple without lymphadenopathy. No thyromegaly. No goiter. Chest is clear to auscultation without wheeze or retractions. Heart is regular. Abdomen benign. Bowel sounds are positive. Genital/Rectal: Not done. Extremities: No cyanosis, clubbing or edema. Left forearm has several shallow superficial lacerations scabbed over. No open areas. No redness. Peripheral pulses equal and palpable bilaterally. Skin is warm and dry. IMPRESSION AND PLAN: Will order hepatitis C viral load etc. Psychiatric plan per psychiatry. Monitor shallow superficial lacerations on the left forearm for any signs of infection. Monitor for drug withdrawal. The patient receives Suboxone from Dr. South. Patient to followup with him. Edited 01/16/2017 [facility]
[2017-01-17 06:38] VITALS: BP 105/62
[2017-01-17] MEDS: clonazePAM 0.5 MG TAB PO SCH (09:46)
[2017-01-17] MEDS: BUPRENORPHINE/NALOXONE 8-2MG SUBLINGUAL TABLET(SUBOXONE) SL SCH ×2 (09:46→20:52)
[2017-01-17] MEDS: ENALAPRIL MALEATE 10 MG TAB PO SCH (09:47)
[2017-01-17] MEDS: NICOTINE 21MG/24HR 1 EA TRANSDERMAL TD SCH (09:47)
[2017-01-17] MEDS: OLANZapine 5 MG TAB PO PRN ×2 (11:57→20:52)
--- NOTE | 2017-01-17 17:19 | IPN ---
DATE: 01/17/2017 I met with Vitaliy Alex today. He stated he was hearing voices, two or three voices. He states he knows he is not schizophrenic. He states "maybe it's just the drugs." Discharge planning discussed with him. His plan is to go to [facility]. Patient states he will not be going there until they "have his medications available." Patient stated, as he did the other day, "I am not schizophrenic, I know I'm not." Patient has a history of noncompliance with all treatment. Patient admitted yesterday that he had been on methamphetamines and heroin when he was seeing and hearing voices. I requested if patient wanted to stay here at the hospital, at which time he became agitated, cursing, and threatening. He would not respond to my repeating if he wanted to stay in the hospital. It is my understanding that he told the turnaround planner that he wanted a day off this coming weekend prior to going to [facility]. I had a discussion with staff as to patient's condition not requiring hospitalization at a psychiatric hospital at this time and plans for discharge. Mental status was difficult to determine as patient became agitated and angry. Since patient is agitated and disruptive and is not having psychotic symptoms at this time and has a discharge plan to go to [facility] for drug rehabilitation, in staff meeting we decided he should be discharged and we will proceed to do that in the morning. DIAGNOSES: Polysubstance dependence. Personality disorder.
[2017-01-17 18:00] VITALS: BP 100/59
[2017-01-18 06:30] VITALS: BP 157/93
[2017-01-18 09:24] VITALS: BP 127/89
[2017-01-18] MEDS: BUPRENORPHINE/NALOXONE 8-2MG SUBLINGUAL TABLET(SUBOXONE) SL SCH (09:24)
[2017-01-18] MEDS: ENALAPRIL MALEATE 10 MG TAB PO SCH (09:24)
[2017-01-18] MEDS: NICOTINE 21MG/24HR 1 EA TRANSDERMAL TD SCH (09:25)
[2017-01-18] MEDS ORDERED: ENAL10TA2 PO (10:45)
[2017-01-18] MEDS: OLANZapine 5 MG TAB PO PRN (11:22)
--- NOTE | 2017-01-18 16:06 | MHDS ---
DATE OF ADMISSION: 01/15/2017 DATE OF DISCHARGE: 01/18/2017 The patient previously was discharged on 12/16/2016, a 46-year-old male with a history of polysubstance abuse, who presents in a paranoid state with suicidal ideation following methamphetamine use. At that time, patient was discharged on 12/16/2016, to outpatient substance abuse counseling. This patient came to the emergency room stating he was "seeing members of a gang in his home," but was able to hide when he phoned the police. 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 His urinary screen was positive for methamphetamines, cannabis, and opiates, although patient minimizes substance abuse. He reported being on Invega Sustenna but it was stopped a few months ago. He stated "I am not schizophrenic, I know I am not." He is admitted due to noncompliance with treatment, including psychotherapy. He had superficial cuts on his left forearm which he inflicted 2 days ago while he was on methamphetamines. He believes he has no psychiatric illnesses. He states that he has a place at [facility] on Monday. The patient stated to me that he had fallen out with family members and therefore went back to using drugs. 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 DRUG USE: The patient states he has used heroin for 28 years, currently using Suboxone prescribed by Dr. South. States he has Dr. South' personal phone number. He started using heroin 3 weeks ago and stopped Suboxone and was shooting heroin and methamphetamine. He states methamphetamine helps him stay awake to write. The patient states he cuts his arms when he is on heroin and amphetamines. He states amphetamines make him depressed. FINANCIAL HISTORY: Patient is on Supplemental Security Income (SSI) but plans to go back to work. NEUROLOGICAL HISTORY: Positive for an epidural hematoma when he was younger. MEDICAL HISTORY: Patient has high blood pressure, smokes. On 01/17/2017, I met with Vitaliy Alex. Apparently senior production planner had met with him and told him that he most likely would not be staying in the hospital. He then complained that he was hearing voices. He stated to me he knows he is not schizophrenic and "maybe it's just the drugs." His plan is to go to [facility], but he wanted to wait until "they have his medications available." Patient stated he knows he is not schizophrenic. Patient, however has had a history of noncompliance with treatment. He admitted to hearing voices when he was on methamphetamines and heroin. I asked patient if he wanted to remain in the hospital, at which time he became agitated, cursing, and threatening. CONCLUSION: Patient is not demonstrating any signs of severe depression, has no homicidal nor suicidal ideation, and is awaiting his treatment at [facility] for rehabilitation. Patient was discharged to outpatient followup. Vasotec 10 mg daily was prescribed to his pharmacy. No other medications were prescribed at this time. DISCHARGE MENTAL STATUS: Denies homicidal or suicidal ideation. No disturbances of speech. No disturbances of thought process. No loose associations. No psychotic thoughts at this time. Judgment and insight normal. Orientation full in three spheres. Recent and remote memory intact. Attention and concentration intact. No disturbances of language. Full fund of knowledge. Mood irritable. Affect irritable. PLAN: Patient to followup with inpatient drug rehabilitation and outpatient treatment with Dr. South. DISCHARGE DIAGNOSIS: Acute psychosis, substance abuse induced.
== END 2017-01-18 13:35 | disposition home or self-care (01) | DRG 776 ==
LOC: M ED 13:20 → M PSY 17:48
PROVIDERS: ADMIT Psychiatry & Neurology Child & Adolescent Psychiatry; ATTEND Psychiatry & Neurology Child & Adolescent Psychiatry
DX: F19.94 Other psychoactive substance use, unspecified with psychoactive substance-induced mood disorder (principal); B18.2 Chronic viral hepatitis C; K21.9 Gastro-esophageal reflux disease without esophagitis; F17.200 Nicotine dependence, unspecified, uncomplicated; Z79.899 Other long term (current) drug therapy

== ENCOUNTER 2017-02-28 20:34 | Emergency (ER) | payer OTHER ==
[~2017-02-28] VITALS: Ht 170.2 cm; Wt 74.8 kg
[~2017-02-28 20:34] MED LIST changes: +ATEN25TA PO; +ENAL10TA2 PO; -ENALAPRIL MALEATE 5 MG TAB PO SCH; +VASO5TAB11 PO
[2017-02-28] MEDS ORDERED: ZYRT10TA2 PO (22:05)
[2017-02-28] MEDS ORDERED: PRED20TA PO (22:05)
[2017-02-28 22:13] VITALS: BP 170/82
[2017-02-28] MEDS ORDERED: predniSONE 50 MG TAB PO ONE (22:15)
[2017-02-28] MEDS ORDERED: predniSONE 20 MG TAB PO ONE (22:15)
== END 2017-02-28 22:13 | disposition home or self-care (01) ==
LOC: M ED 21:43
DX: L25.9 Unspecified contact dermatitis, unspecified cause (principal); F17.200 Nicotine dependence, unspecified, uncomplicated; Z79.899 Other long term (current) drug therapy; Z91.040 Latex allergy status

== ENCOUNTER 2017-04-28 13:29 | Emergency (ER) | payer OTHER ==
[~2017-04-28] VITALS: Ht 167.6 cm; Wt 81.8 kg
[~2017-04-28 13:29] MED LIST changes: -INVE3TAB PO; +INVE3TAB2 PO; -LEVA750T PO; +LEVA750T7 PO; +LEVO750T13 PO; -LEVO750T33 PO; +PRED20TA PO; -RISP2TAB30 PO; +RISP2TAB32 PO; +ZYRT10TA2 PO
[2017-04-28] MEDS ORDERED: LEVO25TA5 (13:53)
[2017-04-28] MEDS ORDERED: ATEN25TA (13:53)
[2017-04-28] MEDS ORDERED: CLON0.5T (13:53)
[2017-04-28] MEDS ORDERED: MIRT15TA3 (13:53)
[2017-04-28] MEDS ORDERED: QUET1TAB8 (13:53)
[2017-04-28] MEDS ORDERED: GABA-282 (13:53)
[2017-04-28] MEDS ORDERED: OLAN20TA (13:53)
[2017-04-28 14:41] VITALS: BP 142/94
== END 2017-04-28 14:59 | disposition home or self-care (01) ==
LOC: M ED 13:29
DX: F19.10 Other psychoactive substance abuse, uncomplicated (principal); I10 Essential (primary) hypertension; F17.200 Nicotine dependence, unspecified, uncomplicated; Z79.899 Other long term (current) drug therapy; Z91.040 Latex allergy status